=== PATIENT | female | born 1960 | race Caucasian/White ===

== ENCOUNTER 2025-05-17 14:20 | Outpatient (REF) | payer MEDICARE, SELFPAY ==
--- NOTE | ~2025-05-17 | US_ITS ---
EXAMINATION: US THYROID CLINICAL INFORMATION: Multinodular goiter, nontoxic. COMPARISON: None available. TECHNIQUE: Linear transducer grayscale and color Doppler examination with attention to the region of the thyroid. FINDINGS: SIZE: Measurements of the thyroid lobes and nodules are given in sagittal, anteroposterior and transverse dimensions respectively. Right Thyroid Lobe: 4.9 x 1.4 x 1.6 cm, volume 5.5 mL. Parenchyma: The gland echotexture is heterogeneous. Thyroid vascularity is increased. Left Thyroid Lobe: 3.9 x 1.0 x 1.0 cm, volume 2.1 mL. Parenchyma: The gland echotexture is heterogeneous. Thyroid vascularity is normal. Isthmus: 0.2 cm in maximum AP dimension. Estimated total number of nodules greater than or equal to 1 cm: 1. 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 Location: Midportion right lobe. Size: 1.0 x 0.4 x 0.7 cm, volume 0.1 mL. Nodule characteristics: Composition: Solid (2). Echogenicity: Isoechoic (1). Shape: Not taller than wide (0). Margins: Ill-defined (0). Echogenic Foci: None (0). ACR TI-RADS total points: 3 ACR TI-RADS category: 3 NODES: Nonspecific 2 cm ovoid shaped lymph node, labeled III left-sided. US/US thyroid IMPRESSION: ACR TI-RADS category: 3. Midportion right lobe. ACR TI-RADS RECOMMENDATION REFERENCE: Ultrasound-guided fine-needle aspiration, followup ultrasound, no further follow up. * TR1 (0 point) and TR2 (2 points): No FNA or follow up. * TR3 (3 points): FNA if more than or equal to 2.5 cm in maximum dimension, followup ultrasound in 1, 3 and 5 years if 1.5 to 2.4 cm in maximum dimension. * TR4 (4-6 points): FNA if more than or equal to 1.5 cm in maximum dimension, followup ultrasound in 1, 2, 3 and 5 years if 1 to 1.4 cm in maximum dimension. * TR5 (more than or equal to 7 points): FNA if more than or equal to 1 cm in maximum dimension, followup ultrasound every year for 5 years if 0.5 to 0.9 cm in maximum dimension. * TR3, TR4 or TR5 nodules that are below the size threshold for followup receive no follow up. Electronically signed by: Otf Haney MD 05/17/2025 03:17 PM EDT
--- OUTSIDE RECORDS SUMMARY | 2025-05-17 19:44 | XMS_ITS | Encounter Summary ---
Author Organization [facility] Address [address] [place] [address] Phone Care Team Providers Care Registered Respiratory Technician Name Role Phone Ju Earlene Jimenez NP Unavailable [phone] Samantha Stephenson MD Unavailable [phone] Samantha Stephenson MD Primary Care Provider [phone] Samantha Stephenson MD Unavailable [phone] Samantha Stephenson MD Unavailable [phone] Cyrus Yoder DO Primary Care Provider [phone] Samantha Stephenson MD Unavailable [phone] Encounter Details Date Type Department Care Team (Late st Contact Info) Description 09/16/2023 Procedure Pass [facility], [address] [address] Social History Tobacco Use Types Packs/Day Years Used Date Smoking Tobacco: Former Cigarettes 1 32.4 0 09/02/1972 - 01/31/2005 Smokeless Tobacco: Never Comments:From 3878-3208 only rarely smoked Alcohol Use Standard Drinks/Week Comments Yes 6 (1 standard drink = 0.6 oz pur e alcohol) occ Education Answer Date Recorded Are you interested in more education? Not on yamel e 12/28/2022 Are you concerned about learning? Not on file 12/28/2022 No 12/28/2022 No 12/28/2022 Digital Access Answer Date Recorded No 01/28/2023 No 01/28/2023 Reliable internet access at home? Not on file 01/28/2023 Device with a working camera? Not on file Comments No Sex and Gender Information Value Date Recorded Sex Assigned at Female 06/24/2020 5:30 PM EDT Legal Sex Female 9:50 PM EDT Gender Identity Female 06/24/2020 5:30 PM EDT Sexual Orientation Straight 06/24/2020 5: 30 PM EDT documented as of this encounter Plan of Treatment Upcoming Encounters Date Type Department Care Team (Late st Contact Info) Description 04/22/2025 Procedure Pass [address] [address] 07/01/2025 2:15 PM EDT Office Visit [address] [address] Cyrus Yoder DO [address] [place] [address] 07/19/2025 1:00 PM EST Office Visit [facility] [address] [place] [address] Drew Garcia DO [address] [place] [address] 02/25/2026 1:30 PM EDT Appointment [address] [address] Vinnie Frias MD 22 [facility], [address] [place] [address] documented as of this encounter Visit Diagnoses Not on filedocumented in this encounter Care Teams Registered Respiratory Technician Relationship Specialty Start Date End Date Samantha Stephenson MD [address] [place] [address] PCP - General 08/01/17 04/19/24 Cyrus Yoder DO [address] [place] [address] PCP - General Family Medicine 04/20/24 Earlene Dodd NP [address] [place] [address] Historical LMR Provider 06/22/17 Samantha Stephenson MD [address] [place] [address] [email or web address] Historical LMR Provider 06/22/17 Samantha Stephenson MD [address] [place] [address] Insurance Assigned Provider 12/08/22 12/07/23 Samantha Stephenson MD [address] [place] [address] Insurance Assigned Provider 03/07/24 06/07/24 Samantha Stephenson MD [address] [place] [address] Insurance Assigned Provider 07/11/24 08/12/24 documented as of this encounter Additional Source Comments The information contained in this document represents components of the legal health record. It is not the complete legal health record.[facility]
--- OUTSIDE RECORDS SUMMARY | 2025-05-17 19:44 | XMS_ITS | Encounter Summary ---
Author Organization [facility] Address [address] [place] [address] Phone Care Team Providers Care Bods Developer Name Role Phone Earlene Dodd NP Unavailable [phone] Samantha Stephenson MD Unavailable [phone] Cyrus Yoder DO Primary Care Provider [phone] Encounter Details Date Type Department Care Team (Late st Contact Info) Description 05/17/2025 Orders Only [facility] Family Medicine [address] [place] [id number] Provider, MD Kevin [address] [place] [address] Social History Tobacco Use Types Packs/Day Years Used Date Smoking Tobacco: Former Cigarettes 1 32.4 0 09/02/1972 - 01/31/2005 Smokeless Tobacco: Never Comments:From [id number] only rarely smoked Alcohol Use Standard Drinks/Week Comments Yes 6 (1 standard drink = 0.6 oz pur e alcohol) 1-6/week Child or Family Care Answer Date Record ed Do you have problems with on e of the following making it difficult for you to work, study, or receive health care? No 05/29/2024 Education Answer Date Recorded Are you interested in help w ith more adult education (for example, completing high school, GED, job training, learning the [place] language, technical skills, or developing parenting skills)? No 05/29/2024 Are you concerned about learning? Not on file 05/29/2024 No 05/29/2024 Yes 05/29/2024 Food Answer Date Recorded Within the past 6 months we worried whether our food would run out before we got money to buy more. Never True 05/29/2024 Within the past 6 months the food we bought just didn't last and we didn't have enough money to get more. Never True Residential Stability Answer Date Recor ded What is your housing situation today? I have ashkan perez 05/29/2024 How many times have you move d in the past 12 months? Zero (I did not move) 05/29/2024 Paying for Meds Answer Date Recorded Do you have trouble paying for medicines? No 05/29/2024 Paying Utility Bills Answer Date Record ed Do you have trouble paying your heating or elect ricity bill? No 05/29/2024 Transportation Answer Date Recorded Has the lack of transportati on kept you from medical appointments or from getting medications? No 05/29/2024 Digital Access Answer Date Recorded No 05/29/2024 Yes 05/29/2024 Do you have reliable internet access at home? Ye s 05/29/2024 Do you have a device (e.g., phone, tablet, computer) with a working camera? Yes 05/29/2024 Intimate Partner Violence Answer Date R ecorded Are you denied basic needs s uch as food, clothing, or medical care? No 08/17/2024 In the past 12 months have y ou been in a relationship with a person who hurts, threatens, or tries to control you? No 08/17/2024 Are you denied basic needs s uch as food, clothing, or medical care? No 08/17/2024 In the past 12 months have y ou been in a relationship with a person who hurts, threatens, or tries to control you? No 08/17/2024 Comments No Sex and Gender Information Value Date Recorded Sex Assigned at Female 06/24/2020 5:30 PM EDT Legal Sex Female 9:50 PM EDT Gender Identity Female 06/24/2020 5:30 PM EDT Sexual Orientation Straight 06/24/2020 5: 30 PM EDT Occupation Industry Job Start Date Job End Date Retired- [employer] Not on file Not on file Not o n file documented as of this encounter Plan of Treatment Upcoming Encounters Date Type Department Care Team (Late st Contact Info) Description 04/22/2025 Procedure Pass [address] [address] 07/01/2025 2:15 PM EDT Office Visit [address] [address] Cyrus Yoder DO [address] [place] [address] 07/19/2025 1:00 PM EST Office Visit [facility] [address] [place] [address] [place] [address] 02/25/2026 1:30 PM EDT Appointment [address] [address] Vinnie Frias MD [address] [place] [address] documented as of this encounter Procedures Procedure Name Priority Date/Time Associated Diagnosis Comments OUTSIDE US THYROID REPORT ONLY Routine 05/17/2025 4:44 PM EDT documented in this encounter Results * Outside US Thyroid Report Only (05/17/2025 4:44 PM EDT) us Historical Provider MD [place] THYROID Edited Re sult - Final documented in this encounter Visit Diagnoses Not on filedocumented in this encounter Additional Health Concerns Assessment Noted Time PHQ-2 Depression Total Score: 0 06/05/20 24 2:06 PM EDT documented as of this encounter Care Teams Bods Developer Relationship Specialty Start Date End Date Cyrus Yoder DO [address] [place], [place] [address], [place] [address] [email or web address] PCP - General Family Medicine 04/20/24 Earlene Dodd NP [address] [place] [address] [email or web address] Historical LMR Provider 06/22/17 Samantha Stephenson MD [address] [place] [address] [email or web address] Historical LMR Provider 06/22/17 documented as of this encounter Additional Source Comments The information contained in this document represents components of the legal health record. It is not the complete legal health record.[facility]
--- OUTSIDE RECORDS SUMMARY | 2025-05-17 19:44 | XMS_ITS | Encounter Summary ---
Author Organization [facility] Address [address] [place] [address] Phone Care Team Providers Care Strap Folding Machine Operator Name Role Phone Earlene Dodd Barbara GUEVARA Unavailable [phone] Samantha Stephenson MD Unavailable Samantha Stephenson MD Primary Care Provider Samantha Stephenson MD Unavailable [phone] Samantha Stephenson MD Unavailable [phone] Cyrus Yoder DO Primary Care Provider [phone] Samantha Stephenson MD Unavailable [phone] Encounter Details Date Type Department Care Team (Latest Contact Info) Description 07/01/2023 Transcribe Orders Virtual Department [address] [place] [address] Kristie Ng PA [address] [place] [address] [email or web address] Neck pain (Primary Dx); Tenderness Social History Tobacco Use Types Packs/Day Years Used Date Smoking Tobacco: Former Cigarettes S tarted: 2004 Smokeless Tobacco: Never Alcohol Use Standard Drinks/Week Comments Yes 1 (1 standard drink = 0.6 oz pur [...] Contact Info) Description 04/22/2025 Procedure Pass [address] [address] 07/01/2025 2:15 PM EDT Office Visit [address] [address] Cyrus Yoder DO [address] [place] [address] 07/19/2025 1:00 PM EST Office Visit [facility] [address] [place] [address] Drew Garcia DO [address] [place] [address] 02/25/2026 1:30 PM EDT Appointment [address] [address] Vinnie Frias MD [address] [place] [address], [address] [address] documented as of this encounter Results * US Thyroid Gland (07/05/2023 2:49 PM EDT) Anatomical Region Laterality Modality Neck, Head, Chest Ultrasound 07/08/2023 4:24 AM EST Impressions 07/08/2023 4:33 AM EST Homogeneous background thyroid parenchymal echotexture. No thyroid nodule meeting TI-RADS criteria for tissue sampling or follow-up imaging. ACR TI-RADS assessment categories can be found at https://www.acr.org/Clinical-Resources/Ijppgwcud-qpb-Tdos-Systems/TI-RADS Narrative 07/08/2023 4:33 AM EST US THYROID GLAND TECHNIQUE: Ultrasound of the thyroid. COMPARISON: None FINDINGS: Right Thyroid: The right lobe measures 5.2 cm in sagittal dimension. Multiple cysts/spongiform (TR 1) and hypoechoic (TR 4) nodules measuring up to 4 mm. No right sided adenopathy is detected. Left Thyroid: The left lobe measures 3.9 cm in sagittal dimension. No nodule. No left sided adenopathy is detected. Procedure Note Jonn Ramirez MD - 07/08/2023 US THYROID GLAND TECHNIQUE: Ultrasound of the thyroid. COMPARISON: None FINDINGS: Right Thyroid: The right lobe measures 5.2 cm in sagittal dimension. Multiple cysts/spongiform (TR 1) and hypoechoic (TR 4) nodules measuringup to 4 mm. No right sided adenopathy is detected. Left Thyroid: The left lobe measures 3.9 cm in sagittal dimension. No nodule. No left sided adenopathy is detected. IMPRESSION: Homogeneous background thyroid parenchymal echotexture. No thyroid nodule meeting TI-RADS criteria for tissue sampling orfollow-up imaging. ACR TI-RADS assessment categories can be found athttps://www.acr.org/Clinical-Resources/Okhtxlapf-ckt-Ctns-Systems/TI-RADS us Kristie JASON IMG US THYROID Final Result documented in this encounter Visit Diagnoses Diagnosis Neck pain- Primary Cervicalgia Tenderness Neck pain Cervicalgia Tenderness documented in this encounter Care Teams Strap Folding Machine Operator Relationship Specialty Start Date End Date Samantha Stephenson MD [address] [place] [address] PCP - General 08/01/17 04/19/24 Cyrus Yoder DO [address] [place] [address] PCP - General Family Medicine 04/20/24 Earlene Dodd NP [address] [place] [address] [email or web address] Historical LMR Provider 06/22/17 Samantha Stephenson MD [address] [place] [address] [email or web address] Historical LMR Provider 06/22/17 Samantha Stephenson MD [address] [place] [address] Insurance Assigned Provider 12/08/22 12/07/23 Samantha Stephenson MD [address] [place] [address] Insurance Assigned Provider 03/07/24 06/07/24 Samantha Stephenson MD [address] [place] [address] Insurance Assigned Provider 07/11/24 08/12/24 documented as of this encounter Additional Source Comments The information contained in this document represents components of the legal health record. It is not the complete legal health record.[facility]
--- OUTSIDE RECORDS SUMMARY | 2025-05-17 19:44 | XMS_ITS | Encounter Summary ---
Author Organization [facility] Address [address] [place] [address] Phone Care Team Providers Care Inspector Publications Name Role Phone Ju Earlene Jimenez NP Unavailable [phone] Samantha Stephenson MD Unavailable [phone] Samantha Stephenson MD Primary Care Provider [phone] Samantha Stephenson MD Unavailable [phone] Samantha Stephenson MD Unavailable [phone] Cyrus Yoder DO Primary Care Provider [phone] Samantha Stephenson MD Unavailable [phone] Encounter Details Date Type Department Care Team (Late st Contact Info) Description 08/13/2023 Procedure Pass [facility] Admitting Dept Virtual Department [address] [place] [address] Social History Tobacco Use Types Packs/Day Years [...] st Contact Info) Description 04/22/2025 Procedure Pass [address] [address] 07/01/2025 2:15 PM EDT Office Visit [address] [address] Cyrus Yoder DO [address] [place] [address] 07/19/2025 1:00 PM EST Office Visit [facility] [address] [place] [address] Drew Garcia DO [address] [place] [address] 02/25/2026 1:30 PM EDT Appointment [address] [address] Vinnie Frias MD [address] [place] [address], [address] [place] [address] documented as of this encounter Visit Diagnoses Not on filedocumented in this encounter Care Teams Inspector Publications Relationship Specialty Start Date End Date Samantha Stephenson MD [address] [place] [address] PCP - General 08/01/17 04/19/24 Cyrus Yoder DO [address] [facility] [place] [address] [email or web address] PCP - General Family Medicine 04/20/24 Earlene Dodd INSTRUCTOR OF SOCIOLOGY [address] [place] [address] [email or web address] Historical LMR Provider 06/22/17 Samantha Stephenson MD [address] [place] [address] [email or web address] Historical LMR Provider 06/22/17 Samantha Stephenson MD [address] [place] [address] [email or web address] Insurance Assigned Provider 12/08/22 12/07/23 Samantha Stephenson MD [address] [place] [address] [email or web address] Insurance Assigned Provider 03/07/24 06/07/24 Samatnha Stephenson MD [address] [place] [address] [email or web address] Insurance Assigned Provider 07/11/24 08/12/24 documented as of this encounter Additional Source Comments The information contained in this document represents components of the legal health record. It is not the complete legal health record.[facility]
--- OUTSIDE RECORDS SUMMARY | 2025-05-17 19:44 | XMS_ITS | Clinical Summary ---
Author Organization [facility] Address [address] [place] [address] Phone Care Team Providers Care Certified Adapted Physical Educator Name Role Phone Earlene Dodd NP Unavailable [phone] Samantha Stephenson MD Unavailable [phone] Teressa Okeefe DO Primary Care Provider [phone] Allergies Active Allergy Reactions Criticality Noted Date Comments Allergen Qod-Rqkok-Ojkif Bee 024 Epinephrine 09/27/2015 Other reaction(s): heart races Nitrofurantoin Macrocrystal 09/27/19 16 Other reaction(s): hives Penicillin Hives 04/23/2018 Penicillin G Sodium 06/26/2019 Other Reaction(s): Unknown Medications cycloSPORINE (RESTASIS) 0.05 % suspension Place 1 drop into each eye 2 (two) times a day. Active famotidine (PEPCID) 20 MG tablet Take 20 mg by mouth 2 (two) times a day. 4 Active therapeutic multivitamin tablet Take 1 tablet by mouth daily. Active docosahexaenoic acid/epa (FISH OIL ORAL) Take by mouth. Active calcium citrate/vitamin D3 (CITRACAL + D ORAL) Take by mouth. Active EPINEPHrine 0.3 mg/0.3 mL auto-injector Inject 0.3 mL (0.3 mg total) into the muscle as needed for anaphylaxis. 2 each 5 Active estradioL (ESTRACE) 0.01 % (0.1 mg/gram) vaginal creamIndications :Vaginal dryness, menopausal Place 1 g vaginally 3 times a week. 42.5 g 2 5 Active estradioL (ESTRACE) 0.01 % (0.1 mg/gram) vaginal creamIndications :Vaginal dryness, menopausal Place 1 g vaginally 3 times a week. 42.5 g 1 5 04/22/20 25 Discontin ued(Reord er) Active Problems Problem Noted Date Diagnosed Date Dry eye syndrome of both eyes 06/05/2024 Assessment & Plan (06/05/2024 2:33 PM EDT): Developed after lasik surgery. Manages with prn restasis PMB (postmenopausal bleeding) 03/10/2024 Thyroid nodule 03/09/2024 Assessment & Plan (06/05/2024 2:29 PM EDT): Has close f/u with Dr Garcia observation advised to this point with repeat u/s at 6 months and consideration of bx if nodule increases in size. PONV (postoperative nausea and vomiting) 024 GERD (gastroesophageal reflux disease) Assessment & Plan (06/05/2024 2:32 PM EDT): Pt advised to avoid late night meals, spicy foods, foods high in fat, caffeine, tobacco and alcohol. Pt advised to elevate the head of the bed and reduce weight. Pt uses famotidine and follows with GI Dr Winslow. Nontoxic multinodular goiter 02/07/2024 Assessment & Plan (07/17/2024 1:03 PM EST): The patient does have small subcentimeter nodules that were not measured she also has some cystic lesions that were not measured. These will not require biopsy. But because she has family history of thyroid carcinoma. I will repeat ultrasound in 1 year and this time I will refer her to [facility]. Assessment & Plan (02/07/2024 11:00 AM EDT): The patient was said to have spongiform cystic nodules and at least one 4 mm hypoechoic nodule in the right lobe. This nodule is too small to biopsy. One other issues also is that it was not documented on the ultrasound images. I am referring her for repeat ultrasound in approximately 1 year from the last ultrasound and she will see me maybe 2 weeks later. We can review the ultrasound if the nodule is bigger maybe even 7 or 8 mm it could potentially be biopsied but normally we will biopsy a nodule when is at least 1 cm in size. The reason for this is that is difficult to get enough follicular cells on cytology. Osteopenia 11/06/2021 Overview (11/06/2021): 10/2021 - DEXA with osteopenia noted; advised fol up with PCP, adequate Calcium/Vit D and weight bearing exercise and interval screening as advised by PCP. Family history of osteoporosis in sister 020 Overview (11/06/2021): Sister dx with osteoporosis age 56 Mother, mgm osteoporosis age 60s 10/2021 - DEXA with osteopenia noted; advised fol up with PCP, adequate Calcium/Vit D and weight bearing exercise and interval screening as advised by PCP. Assessment & Plan (02/14/2021 5:52 PM EDT): Rosa will pursue DEXA; was to have baseline last year but was deferred due to pandemic. Assessment & Plan (11/03/2019 4:53 PM EST): We reviewed family history of early onset of osteoporosis. Will check baseline DEXA as precaution. Rosa will continue with regular exercise and will evaluate her dietary calcium intake and add supplement prn. Menopausal vaginal dryness 10/31/2018 Assessment & Plan (06/05/2024 2:35 PM EDT): Follows with [facility] and manages with estrace Assessment & Plan (02/14/2021 5:51 PM EDT): Natali will try Estring and may also apply Estrace to introitus 2-3 times a week. We reviewed need for consistent use of vaginal estrogen to achieve optimum effect. She will continue with lube as well. Assessment & Plan (10/31/2018 4:55 PM EST): We reviewed strategies for treating vaginal dryness. Rosa has Estring at home but was reluctant to use having read about risks of systemic estrogen. We discussed difference in risk profile for vaginal vs. Systemic rx. She would like to try Estring and will call for refills if she is happy with it - may refill through 11/2019. Encounters Date Type Department Care Team Description 05/17/2025 Orders Only [facility] [address] [place] [address] Provider, MD Kevin 04/22/2025 11:40 AM EDT Office Visit [facility] [address] [place] [address] Vinnie Frias MD Encounter for gynecological examination without abnormal finding (Primary Dx); Vaginal dryness, menopausal 03/18/2025 Telephone [facility] [address] [place] [address] Teressa Okeefe, DO Same day can 03/17/2025 Nurse Triage [facility] [address] [place] [address] Lachelle Jay Calf Pain 02/24/2025 1:05 PM EDT - 02/24/2025 11:59 PM EDT Hospital Encounter [address] [address] Teressa Okeefe, DO Discharge Disposition: Home or Self Care 09/07/2024 Procedure Pass [facility] [address] [place] [address] from Last 3 Months Immunizations Immunization Administration Dates Next Due COVID-19 (Pre-06/24) Pfizer Vaccine, mRNA, PF ,11/26/2020 Family History Medical History Relation Comments Cancer Father Skin cancer Hyperlipidemia Father Hypertension Father Skin cancer Father Throat cancer Maternal Grandmother CV disease Mother [place] Cancer Mother Cervical cancer Cervical cancer Mother Breast cancer Sister Cancer Sister Thyroid cancer Osteoporosis Sister Thyroid cancer Sister Relation Status Comments Father Alive Maternal Grandmother Mother Alive Sister Social History Tobacco Use Types Packs/Day Years Used Date Smoking Tobacco: Former Cigarettes 1 32.4 0 09/02/1972 - 01/31/2005 Smokeless Tobacco: Never Tobacco Cessation:Counseling Given: Not Answered Comments:From [id number] only rarely smoked Alcohol Use Standard Drinks/Week [...] high school, GED, job training, learning the Polish language, technical skills, or developing parenting skills)? [...] Not on file Not o n file Last Filed Vital Signs Vital Sign Reading Time Taken Comments Blood Pressure 110/72 04/22/2025 11:29 AM EDT Pulse 90 08/17/2024 11:35 AM EST Temperature 36.2 C (97.1 F) 08/17/2024 11:20 AM EST Respiratory Rate 16 08/17/2024 11:35 AM EST Oxygen Saturation 97% 08/17/2024 11:35 AM EST Inhaled Oxygen Concentration - - Weight 68.2 kg (150 lb 6.4 oz) 04/22/2025 11:29 AM EDT Height 160 cm (5' 3 ) 04/22/2025 11:29 AM EDT Body Mass Index 26.64 04/22/2025 11:29 AM EDT Plan of Treatment Upcoming Encounters Date Type Department Care Team (Late st Contact Info) Description 04/22/2025 Procedure Pass [facility], [facility]- [address] [address] 07/01/2025 2:15 PM EDT Office Visit [address] [address] Teressa Okeefe, DO [address] [place] [address] 07/19/2025 1:00 PM EST Office Visit [facility] [address] [place] [address] Drew Garcia DO [address] [place] [address] 02/25/2026 1:30 PM EDT Appointment [facility], [address] [address] Vinnie Frias MD 22 [facility], [address] [place] [address] [email or web address] Health Maintenance Due Date Last Done Comments Adult Td,Tdap Booster 1960 COLOGUARD 2004 FIT TEST 2004 FOBT 2004 SIGMOIDOSCOPY 2004 VIRTUAL COLONOSCOPY 2004 PNEUMOCOCCAL VACCINES (50+ years) (1 of 1 - PCV) 2009 ZOSTER VACCINES (1 of 2) 2009 INFLUENZA VACCINE (#1) 2025 06/24/2018 COVID-19 VACCINE (3 - 2024- season) 2025 12/17/2020, 11/26/2020 DEPRESSION SCREENING 06/05/2025 06/05/2024 MAMMOGRAM 02/24/2027 02/24/2025, 04/0 12/2023, 12/04/2022, Additional history exists SCREENING FOR DIABETES 07/02/2027 07/02/2024 PAP SMEAR 12/29/2028 12/30/2023, 03/0 11/2019, 11/03/2019, Additional history exists LIPID PANEL 07/02/2029 07/02/2024, 02/27/2022 RSV VACCINE (1 - 1-dose 75+ series) 2034 COLONOSCOPY 08/17/2034 08/17/2024 COLORECTAL CANCER SCREENING 08/17/2034 OSTEOPOROSIS SCREENING INITIAL (ONE-TIME) Completed 10/25/2021 HEPATITIS C SCREENING Completed 07/02/2024 HIV ONE-TIME SCREENING (18-65 YEARS) Completed 07/02/2024 SMOKING STATUS SCREENING (Once After 26 Yrs) Completed 04/22/2025 HEPATITIS A VACCINES Aged Out No long er eligible based on patient's age to complete this topic HIB VACCINES Aged Out No longer eligi ble based on patient's age to complete this topic MENINGOCOCCAL VACCINES (ACWY) Aged Out No longer eligible based on patient's age to complete this topic MENINGOCOCCAL VACCINES (B) Aged Out N o longer eligible based on patient's age to complete this topic Medical Devices Implanted Type Area Security Incident Handler Device Identifier Shelf Expiration Date Model / Serial / Lot Prosthetic Joint-Bilateral Hips Prosthetic Joint Hip Procedures Procedure Name Priority Date/Time Associated Diagnosis Comments OUTSIDE US THYROID REPORT ONLY Routine 05/17/2025 4:44 PM EDT BI MAMMOGRAM SCREENING WITH TOMOSYNTHESIS WITH CAD (BILATERAL) Routine 02/24/2025 1:29 PM EDT Visit for screening mammogram ENDOSCOPY, COLON 08/17/2024 10:5 0 AM EST LIPID PANEL Routine 07/02/2024 9:02 AM EDT Screening for condition HEPATITIS C ANTIBODY, QUALITATIVE Routine 07/02/2024 9:02 AM EDT Need for hepatitis C screening test PAP TEST Routine 12/30/2023 12:00 AM EDT BD DXA AXIAL (SPINE) WITH HIP Routine 10/25/2021 3:05 PM EST Vaginal dryness, menopausal from Last 3 Months or Most Recently Relevant to Health Maintenance Results * Outside US Thyroid Report Only (05/17/2025 4:44 PM EDT) us Historical Provider MD MENENDEZ US THYROID Edited Re sult - Final * BI MAMMOGRAM SCREENING WITH TOMOSYNTHESIS WITH CAD (BILATERAL) (02/24/2025 1:29 PM EDT) Anatomical Region Laterality Modality Breast Left, Breast Right, Breast Bilateral Bila teral Mammography 02/25/2025 2:57 PM EDT Impressions 02/25/2025 2:59 PM EDT No mammographic evidence of malignancy in either breast. Annual screening mammography is recommended. BI-RADS 2 BENIGN The patient will be notified of the results and recommendations. Narrative 02/25/2025 2:59 PM EDT BI MAMMOGRAM SCREENING WITH TOMOSYNTHESIS WITH CAD (BILATERAL) Additional patient information: Screening. COMPARISON: Comparison is made with relevant prior imaging. Breast composition: There are scattered areas of fibroglandular density. FINDINGS: Mass in the central right breast appears grossly stable dating back to at least 2018. No abnormal masses, suspicious calcifications, or other significant findings are identified mammographically in either breast. Procedure Note Faviola Yang MD - 02/25/2025 BI MAMMOGRAM SCREENING WITH TOMOSYNTHESIS WITH CAD (BILATERAL) Additional patient information: Screening. COMPARISON: Comparison is made with relevant prior imaging. Breast composition: There are scattered areas of fibroglandular density. FINDINGS: Mass in the central right breast appears grossly stable dating back to atleast 2018. No abnormal masses, suspicious calcifications, or other significantfindings are identified mammographically in either breast. IMPRESSION: No mammographic evidence of malignancy in either breast. Annual screening mammography is recommended. BI-RADS 2 BENIGN The patient will be notified of the results and recommendations. Teressa Okeefe DO IMG MG EXAMS Final Result * ENDOSCOPY, COLON (08/17/2024 10:50 AM EST) Narrative Transcriptions Armando Winslow MD - 08/17/2024 10:50 AM EST [facility] Patient Name: Rosa Diop Attending MD:: ARMANDO WINSLOW MD, Procedure Date: 08/17/2024 10:50AM Date of : 1960 Age: 64 Admit Type: Outpatient Gender: Female Room: [facility] Referring MD: TERESSA OKEEFE MD Exam Type: Colonoscopy Indications: Surveillance: Personal history of adenomatouspolyps on last colonoscopy > 5 years ago, Lastcolonoscopy: August 2019 Medications: Monitored Anesthesia Care Procedure: Informed consent was obtained from the patientafter discussion of the indications, limitations, alternatives, benefits, and risks of the procedure. Risks specifically discussed include but are not limited to medication reactions, missed lesions, bleeding, perforation, or the need for emergent surgery. Throughout the procedure, the patient's blood pressure, pulse, end-tidal CO2, and oxygensaturations were monitored continuously. The Colonoscope was introduced through the anus and advanced to the cecum, identified by theappendiceal orifice, ileocecal valve and palpation. The colonoscopy was somewhat difficult due tosignificant looping. Successful completion of the procedure was aided by applying abdominal pressure. The patient tolerated the procedure poorly due to the patient's cardiovascular instability (arrhythmia). Thequality of the bowel preparation was evaluated using theBBPS (Garland Bowel Preparation Scale) with scores of:Right Colon = 2 (minor amount of residual staining, small fragments of stool and/or opaque liquid, but mucosa seen well), Transverse Colon = 3 (entire mucosaseen well with no residual staining, small fragments of stool or opaque liquid) and Left Colon = 2 (minor amount of residual staining, small fragments ofstool and/or opaque liquid, but mucosa seen well). Thetotal BBPS score equals 7. The ileocecal valve,appendiceal orifice, and rectum were photographed. Complications: Asystole pause requiring thump pacing before spontaneous return of rhythm. Findings: The perianal and digital rectal examinations were normal. Pertinent negatives include normalsphincter tone. The colon (entire examined portion) was moderately redundant. Retroflexion in the right colon was performed. A few small-mouthed diverticula were found in the descending colon. The exam was otherwise without abnormality ondirect and retroflexion views. Impression: - Redundant colon. - Diverticulosis in the descending colon. - The examination was otherwise normal on directand retroflexion views. - No specimens collected. Recommendation: - Repeat colonoscopy in 5-7 years for surveillance(at hospital site only). ARMANDO WINSLOW MD 08/17/2024 11:18:03 AM This report has been signed electronically. Number of Addenda: 0 Note Initiated On: 08/17/2024 10:50 AM Procedure Code(s): --- Professional --- 96752, Colonoscopy, flexible; diagnostic, including collection of specimen(s) by brushing or washing, when performed (separateprocedure) --- Technical --- 53489, Colonoscopy, flexible; diagnostic, including collection of specimen(s) by brushing or washing, when performed (separateprocedure) Diagnosis Code(s): --- Professional --- Z86.010, Personal history of colonic polyps K57.30, Diverticulosis of large intestine without perforation or abscess without bleeding Q43.8, Other specified congenital malformations of intestine --- Technical --- Z86.010, Personal history of colonic polyps K57.30, Diverticulosis of large intestine without perforation or abscess without bleeding Q43.8, Other specified congenital malformations of intestine CPT copyright 2021 [employer]. All rights reserved. The codes documented in this report are preliminary and upon steel welder reviewmay be revised to meet current compliance requirements. Procedure Date: 08/17/2024 10:50:45 AM [address] [place] [address] us Teressa Okeefe DO GI PROCEDURE ORDERABLES Final Re sult * Hepatitis C antibody, qualitative (07/02/2024 9:02 AM EDT) HCV NON-REACTIV E NON-REACTI VE [facility] Blood 07/02/2024 9:02 AM EDT 07/02/2024 9:05 AM EDT Teressa Okeefe LAB BLOOD ORDERABLES Final Resul t Performing Organization Address [facility] Co de Phone Number [address] [address] * (ABNORMAL) Lipid panel (07/02/2024 9:02 AM EDT) HDL 66 mg/dL [facility] Comment: Interpretation <40 mg/dL: Low HDL cholesterol (major risk factor for CHD) Greater than or equal to 60 mg/dL: High HDL cholesterol ( negative risk factor for CHD) HDL - cholesterol is affected by a number of factors, e.g. smoking, excerise, hormones, sex and age. CHOLESTEROL 175 0 - 240 mg/dL [facility] TRIGLYCERIDES 57 30 - 160 mg/dL [facility] LDL 98 50 - 129 mg/dL [facility] Comment: LDL levels in terms of risk for coronary heart disease: <100 mg/dL: Optimal 100-129 mg/dL: Near or above optimal 130-159 mg/dL: Borderline high 160-189 mg/dL: High >190 mg/dL: Very High CARDIAC RISK RATIO 2.7(L) 3.3 - 4.4 C [facility] Blood 07/02/2024 9:02 AM EDT 07/02/2024 9:05 AM EDT Teressa Okeefe [employer] LAB BLOOD ORDERABLES Final Resul t Performing Organization Address City/[facility]/ZIP Co de Phone Number [address] [address] * Pap Test (12/30/2023 12:00 AM EDT) 12/30/2023 12/31/2023 10: 00 AM EDT Narrative SEE NARRATIVE - 01/07/2024 2:46 PM EDT [address] [address] Change Management Coordinator: Amirah Duran MD [facility] Cytology Report FINAL DIAGNOSIS A. PAP SMEAR (SUREPATH) CE: SPECIMEN ADEQUACY: Satisfactory for evaluation; transformation zone present. INTERPRETATION: NEGATIVE FOR INTRAEPITHELIAL LESION OR MALIGNANCY. Electronically Signed Out By: Amirah Duran MD By his/her signature above, the pathologist listed as making the Final Diagnosis certifies that he/she has personally reviewed this case and confirmed or corrected the diagnosis. The Pap test is a screening test primarily for squamous cancers and precursors and has associated false-negative and false-positive results. New technologies such as liquid-based preparations may decrease but will not eliminate all false-negative results. Regular sampling and follow-up of unexplained clinical signs and symptoms are recommended to minimize false negative results. CLINICAL HISTORY Date of Last Menstrual Period: Not Provided Menstrual History: Post Menopausal Bleeding, PM Other Clinical Conditions: Screening Pap SPECIMEN SOURCE A: PAP SMEAR (SUREPATH) CE Patient Name: ROSA DIOP : 1960 (Age: 63) Sex: F Institution: [facility] Location: [facility] Date of Collection: 12/30/2023 Date of Reported: 01/07/2024 14:46 Results to: Alphonso Gomez MD, BS us Alphonso Gomez MD CYTOLOGY ORDERABLES Final Res ult SEE NARRATIVE * BD DXA AXIAL (SPINE) WITH HIP (10/25/2021 3:05 PM EST) Anatomical Region Laterality Modality Bone Density Bone Density 10/25/2021 3:23 PM EST Impressions 10/25/2021 3:27 PM EST Interval left hip osteopenia. Normal lumbar spine bone density. Decrease in bone density at both sites since 2006. Narrative 10/25/2021 3:27 PM EST COMPARISON: 07/22/2007 report. Images are not available. BONE DENSITY FINDINGS: History: This is a 61-year-old postmenopausal female. Evaluation of the lumbar spine and left hip was performed and felt to be technically adequate. L1-L4 vertebral bodies total bone mineral density was calculated at 0.989 gm/cm2 with a T-score of -0.5 falling within the WHO classification of normal-unchanged. Z-score of 1. 13.5% decrease in bone density which is statistically significant. Left femoral neck bone mineral density was calculated at 0.646 gm/cm2 with a T- score of -1.8 falling within the WHO classification of osteopenia. Z-score of -0.4. Total Left hip bone mineral density was calculated at 0.796 gm/cm2 with a T- score of -1.2 falling within the WHO classification of osteopenia-previously normal. Z-score of -0.1. 9.9% decrease in bone density which is statistically significant. Procedure Note Jas Fortune MD - 10/25/2021 COMPARISON: 07/22/2007 report. Images are not available. BONE DENSITY FINDINGS: History: This is a 61-year-old postmenopausal female. Evaluation of the lumbar spine and left hip was performed and felt to betechnically adequate. L1-L4 vertebral bodies total bone mineral density was calculated at 0.989gm/cm2 with a T-score of -0.5 falling within the WHO classification ofnormal-unchanged. Z- score of 1. 13.5% decrease in bone density which isstatistically significant. Left femoral neck bone mineral density was calculated at 0.646 gm/cm2 witha T- score of -1.8 falling within the WHO classification of osteopenia.Z-score of -0.4. Total Left hip bone mineral density was calculated at 0.796 gm/cm2 with aT-score of -1.2 falling within the WHO classification ofosteopenia-previously normal. Z- score of -0.1. 9.9% decrease in bonedensity which is statistically significant. IMPRESSION: Interval left hip osteopenia. Normal lumbar spine bone density. Decreasein bone density at both sites since 2006. us Earlene MENENDEZ BD BONE DENSITY DEXA Final Result from Last 3 Months or Most Recently Relevant to Health Maintenance Insurance [employer] MEDEX SUPPLEMENT MEDICARE PART A & B [employer] MEDEX SUPPLEMENT MEDICARE PART A & B [employer] MEDEX SUPPLEMENT MEDICARE PART A & B [employer] MEDEX SUPPLEMENT MEDICARE PART A & B [employer] MEDEX SUPPLEMENT MEDICARE PART A & B Member Subscriber Plan / Payer ( fective 2024-Present) Name:ZahraaCatherine cordonnne Member ID:[id number] Relation to Subscriber:Self Name:Catherine Diopnne Subscriber ID:[id number] Payer ID:[id number] Group ID:Not on file Type:Medicare Address: [employer] [address] [employer] MEDEX SUPPLEMENT MEDICARE PART A & B Advance Directives For more information, please contact: [phone] (9AM - 5PM [facility], Saturday-Saturday) * Full Code (Latest Code Status on File) Date Activated Date Inactivated Comments 03/10/2024 11:03 AM Question Answer Comments Code Status Confirmed With: Patient Care Teams Certified Adapted Physical Educator Relationship Specialty Start Date End Date Teressa Okeefe DO [address] [place] [address] [place] [address] PCP - General Family Medicine 04/20/24 Earlene Dodd NP [address] [place] [id number] [email or web address] Historical LMR Provider 06/22/17 Samantha Stephenson MD [address] [place] [id number] [email or web address] Historical LMR Provider 06/22/17 Additional Source Comments The information contained in this document represents components of the legal health record. It is not the complete legal health record.[facility]
--- OUTSIDE RECORDS SUMMARY | 2025-05-17 19:44 | XMS_ITS | Encounter Summary ---
Author Organization [facility] Address [address] [place] [address] Phone Care Team Providers Care Powerhouse Helper Name Role Phone Earlene Dodd NP Unavailable [phone] Samantha Stephenson MD Unavailable [phone] Cyrus Yoder DO Primary Care Provider [phone] Encounter Details Date Type Department Care Team (Late st Contact Info) Description 09/07/2024 Procedure Pass [facility], [address] [address] Social History Tobacco Use Types Packs/Day Years Used Date Smoking Tobacco: Former Cigarettes 1 32.4 0 09/02/1972 - 01/31/2005 Smokeless Tobacco: Never Comments:From 4766-4910 only rarely smoked Alcohol Use Standard Drinks/Week [...] high school, GED, job training, learning the Cuban language, technical skills, or developing parenting skills)? [...] your housing situation today? I have ashkan sing 05/29/2024 How many times have you move [...] Job Start Date Job End Date Retired- [employer] Not on file Not on file Not o n file documented as of this encounter Plan of Treatment Upcoming Encounters Date Type Department Care Team (Late st Contact Info) Description 04/22/2025 Procedure Pass [address] [address] 07/01/2025 2:15 PM EDT Office Visit [address] [address] Cyrus Yoder DO 29 [place] [address] 07/19/2025 1:00 PM EST Office Visit [facility] [address] [place] [address] Drew Garcia DO 22 [place] [address] 02/25/2026 1:30 PM EDT Appointment [address] [address] Vinnie Frias MD [address] [place] [address], [address] [address] documented as of this encounter Visit Diagnoses Not on filedocumented in this encounter Additional Health Concerns Assessment Noted Time PHQ-2 Depression Total Score: 0 06/05/20 24 2:06 PM EDT documented as of this encounter Care Teams Powerhouse Helper Relationship Specialty Start Date End Date Cyrus Yoder DO [address] [place] [address] PCP - General Family Medicine 04/20/24 Earlene Dodd NP [address] [place] [address] Historical LMR Provider 06/22/17 Samantha Stephenson MD [address] [place] [id number] [email or web address] Historical LMR Provider 06/22/17 documented as of this encounter Additional Source Comments The information contained in this document represents components of the legal health record. It is not the complete legal health record.[facility]
--- OUTSIDE RECORDS SUMMARY | 2025-05-17 19:44 | XMS_ITS | Encounter Summary ---
Author Organization [facility] Address [address] [place] [address] Phone Care Team Providers Care Spring Intern Name Role Phone Earlene Dodd Barbara GUEVARA Unavailable [phone] Samantha Stephenson MD Unavailable Kurt Sifuentes DO Unavailable Christel Grayson MD Unavailable Caitie Devlin MD Unavailable [phone] Katie Rangel MD Unavailable Navi Robles MD Unavailable Samantha Stephenson MD Primary Care Provider [phone] Samantha Stephenson MD Unavailable [phone] Samantha Stephenson MD Unavailable [phone] Samantha Stephenson MD Unavailable [phone] Cyrus Yoder DO Primary Care Provider Samantha Stephenson MD Unavailable [phone] Encounter Details Date Type Department Care Team (Latest Contact Info) Description 04/07/2018 Transcribe Orders [facility] Laboratory [address] [place] [address] Kristie Ng PA [address] [place] [id number] [email or web address] Osteoarthritis, unspecified osteoarthritis type, unspecified site (Primary Dx); Pre-op evaluation; Muscle cramping; Diagnosis unknown Social History Tobacco Use Types Packs/Day Years Used Date Smoking Tobacco: Never Assessed Comments Unknown Sex and Gender Information Value Date Recorded Sex Assigned at Female 06/24/2020 5:30 PM EDT Legal Sex Female 9:50 PM EDT Gender Identity Female 06/24/2020 5:30 PM EDT Sexual Orientation Straight 06/24/2020 5: 30 PM EDT documented as of this encounter Plan of Treatment Upcoming Encounters Date Type Department Care Team (Late st Contact Info) Description 04/22/2025 Procedure Pass [address] [address] 07/01/2025 2:15 PM EDT Office Visit [address] [address] Cyrus Yoder DO [address] [place] [address] 07/19/2025 1:00 PM EST Office Visit [facility] [address] [place] [address] Drew Garcia DO [address] [place] [address] 02/25/2026 1:30 PM EDT Appointment [address] [address] Vinnie Frias MD [address] [place] [address], [address] [address] documented as of this encounter Results * Vitamin B12 (04/07/2018 3:08 PM EDT) VITAMIN B12 492 867 - 1,245 pg/mL [facility] Blood 04/07/2018 3:08 PM EDT 04/07/2018 3:10 PM EDT Kristie JASON LAB BLOOD ORDERABLES Final Resu lt Performing Organization Address [facility] Co de Phone Number [address] [address] * (ABNORMAL) Urinalysis (04/07/2018 3:08 PM EDT) COLOR Yellow Yellow [facility] CLARITY Clear [facility] GLUCOSE Negative Negative [facility] BILI Negative Negative [facility] KETONES Negative Negative [facility] SPECIFIC GRAVITY 1.010 1.005 - 1.030 [facility] BLOOD Trace(A) Negative [facility] PH 6.0 5.0 - 8.0 [facility] Protein-UA Negative Negative [facility] NITRITE Negative Negative [facility] Leukocyte esterase, ur Negative Negative [facility] Urine (Urine) 04/07/2018 3:0 8 PM EDT 04/07/2018 3:11 PM EDT Kristie JASON URINE ORDERABLES Final Result Performing Organization Address [facility] de Phone Number [address] [address] * Magnesium (04/07/2018 3:08 PM EDT) MAGNESIUM 2.2 1.6 - 2.6 mg/dL [facility] Blood 04/07/2018 3:08 PM EDT 04/07/2018 3:10 PM EDT Kristie JASON LAB BLOOD ORDERABLES Final Resu lt Performing Organization Address [facility] [place] [facility] Co de Phone Number [address] [address] * (ABNORMAL) Folate (04/07/2018 3:08 PM EDT) FOLIC ACID >20.0(H) 4.2 - 19.9 ng/mL [facility] Blood 04/07/2018 3:08 PM EDT 04/07/2018 3:10 PM EDT us Kristie JASON LAB BLOOD ORDERABLES Final Resu lt [address] [address] * (ABNORMAL) CBC and differential (04/07/2018 3:08 PM EDT) WBC 7.24 3.40 - 11.20 K/uL [facility] RBC 4.66 3.80 - 4.80 M/uL [facility] HGB 13.9 12.0 - 15.0 g/dL [facility] HCT 41.7 36.0 - 46.0 % [facility] PLT 280 130 - 400 K/uL [facility] MCV 89.5 79.0 - 98.0 fL [facility] MCH 29.8 27.0 - 34.8 pg [facility] MCHC 33.3 31.5 - 36.0 g/dL [facility] RDW 12.6 10.8 - 14.6 % [facility] MPV 10.0 9.4 - 12.4 fl [facility] NRBC 0.00 /100 WBCs [facility] ABSOLUTE NRBC 0.00 K/uL [facility] DIFF METHOD Auto [facility] NEUTS 56.6 45.30 - 77.70 % [facility] LYMPHS 29.3 12.30 - 39.70 % [facility] MONOS 10.5 4.10 - 12.80 % [facility] EOS 2.3 0 - 7.2 % [facility] BASOS 1.0 0 - 2.80 % [facility] Granulocytes, immature (%) 0.3 0.0 - 0.9 % [facility] ABSOLUTE NEUTS 4.10 1.40 - 7.70 K/uL [facility] ABSOLUTE LYMPHS 2.12 0.60 - 3.20 K/uL [facility] ABSOLUTE MONOS 0.76(H) 0.11 - 0.59 K/uL [facility] ABSOLUTE EOS 0.17 0.01 - 0.50 K/uL [facility] ABSOLUTE BASOS 0.07 0.00 - 0.08 K/uL [facility] Granulocytes, immature 0.02 0.00 - 0.05 K/uL [facility] Blood 04/07/2018 3:08 PM EDT 04/07/2018 3:10 PM EDT us Kristie JASON LAB BLOOD ORDERABLES Final Resu lt Performing Organization Address City/[facility]/ZIP Co de Phone Number [address] [address] * Basic metabolic panel (04/07/2018 3:08 PM EDT) SODIUM 143 133 - 146 mmol/L [facility] CHLORIDE 104 96 - 108 mmol/L [facility] POTASSIUM 4.1 3.3 - 5.1 mmol/L [facility] CO2 27 21 - 35 mmol/L [facility] BUN 15 6 - 19 mg/dL [facility] CREATININE 0.70 0.5 - 1.5 mg/dL [facility] GLUCOSE 85 70 - 99 mg/dL [facility] CALCIUM 9.1 8.4 - 10.3 mg/dL [facility] EGFR 96 >59 mL/min/1.7 3m2 [facility] Comment:If patient is black, multiply result by 1.159. Estimated glomerular filtration rate calculated using the CKD-EPI equation. ANION GAP 16 10 - 20 mmol/L [facility] Blood 04/07/2018 3:08 PM EDT 04/07/2018 3:10 PM EDT Kristie JASON LAB BLOOD ORDERABLES Final Resu lt [address] [address] documented in this encounter Visit Diagnoses Diagnosis Osteoarthritis, unspecified osteoarthritis type, unspecified site- Primary Pre-op evaluation Muscle cramping Diagnosis unknown documented in this encounter Care Teams Spring Intern Relationship Specialty Start Date End Date Samantha Stephenson MD [address] [place] [address] [email or web address] PCP - General 08/01/17 04/19/24 Cyrus Yoder DO [address] [place] [address] [place] [address] PCP - General Family Medicine 04/20/24 Earlene Dodd NP [address] [place] [address] Historical LMR Provider 06/22/17 Samantha Stephenson MD [address] [place] [address] Historical LMR Provider 06/22/17 Kurt Sifuentes DO [address] [place] [address] Orthopedics & Sports Medicine, [place] [address] Historical LMR Provider 06/22/17 09/09/21 Christel Grayson MD [address] [place] [address] Historical LMR Provider 06/22/17 Caitie Devlin MD [address] [place] [address] Historical LMR Provider 06/22/17 2 Katie Rangel MD [address] [place] [phone] Historical LMR Provider 06/22/17 2 Navi Robles MD [address] [place] [address] Historical LMR Provider 06/22/17 2 Samantha Stephenson MD [address] [place] [address] [email or web address] Insurance Assigned Provider 01/03/19 02/06/20 Samantha Stephenson MD [address] [place] [address] Insurance Assigned Provider 12/08/22 12/07/23 Samantha Stephenson MD [address] [place] [address] Insurance Assigned Provider 03/07/24 06/07/24 Samantha Stephenson MD [address] [place] [address] Insurance Assigned Provider 07/11/24 08/12/24 documented as of this encounter Additional Source Comments The information contained in this document represents components of the legal health record. It is not the complete legal health record.[facility]
--- OUTSIDE RECORDS SUMMARY | 2025-05-17 19:44 | XMS_ITS | Encounter Summary ---
Author Organization [facility] Address [address] [place] [address] Phone Care Team Providers Care Sports Fitness And Wellness Director Name Role Phone Earlene Dodd NP Unavailable [phone] Samantha Stephenson MD Unavailable [phone] Cyrus Yoder DO Primary Care Provider [phone] Encounter Details Date Type Department Care Team (Late st Contact Info) Description 08/17/2024 Procedure Pass [facility] Admitting Dept Virtual Department [address] [place], [place] [phone] Social History Tobacco Use Types Packs/Day Years Used Date Smoking Tobacco: Former Cigarettes 1 32.4 0 09/02/1972 - 01/31/2005 Smokeless Tobacco: Never Comments:From 4998-4337 only rarely smoked Alcohol Use Standard Drinks/Week Comments Not Currently 0 (1 standard drink = 0.6 oz pur [...] high school, GED, job training, learning the Serbian language, technical skills, or developing parenting skills)? [...] Job Start Date Job End Date Retired- [employer] Not on file Not on file Not o n file documented as of this encounter Plan of Treatment Upcoming Encounters Date Type Department Care Team (Late st Contact Info) Description 04/22/2025 Procedure Pass [address] [address] 07/01/2025 2:15 PM EDT Office Visit [address] [address] Cyrus Yoder DO 29 [place] [address] 07/19/2025 1:00 PM EST Office Visit [facility] [address] [place] [address] Drew Garcia DO 22 [place] [address] 02/25/2026 1:30 PM EDT Appointment [address] [address] Vinnie Frias MD [address] [place] [address], [address] [address] documented as of this encounter Visit Diagnoses Not on filedocumented in this encounter Additional Health Concerns Assessment Noted Time PHQ-2 Depression Total Score: 0 06/05/20 24 2:06 PM EDT documented as of this encounter Care Teams Sports Fitness And Wellness Director Relationship Specialty Start Date End Date Cyrus Yoder DO [address] [place] [address] PCP - General Family Medicine 04/20/24 Earlene Dodd NP [address] [place] [address] Historical LMR Provider 06/22/17 Samantha Stephenson MD [address] [place] [address] [email or web address] Historical LMR Provider 06/22/17 documented as of this encounter Additional Source Comments The information contained in this document represents components of the legal health record. It is not the complete legal health record.[facility]
--- OUTSIDE RECORDS SUMMARY | 2025-05-17 19:44 | XMS_ITS | Encounter Summary ---
Author Organization [facility] Address [address] [place] [address] Phone Care Team Providers Care Banking Specialist Name Role Phone Earlene Dodd FAST FOOD ASSISTANT RESTAURANT MANAGER Unavailable [phone] Samantha Stephenson MD Unavailable Kurt Sifuentes DO Unavailable Christel Grayson MD Unavailable Caitie Devlin MD Unavailable [phone] Katie Rangel MD Unavailable Navi Robles MD Unavailable Samantha Stephenson MD Primary Care Provider [phone] Samantha Stephenson MD Unavailable [phone] Samantha Stephenson MD Unavailable [phone] Cyrus Yoder DO Primary Care Provider Samantha Stephenson MD Unavailable Encounter Details Date Type Department Care Team (Late st Contact Info) Description 10/18/2020 Ancillary Orders [facility] [address] [place] [address] [place] [address] Earlene Dodd, FAST FOOD ASSISTANT RESTAURANT MANAGER [address] [place] [address] Abnormal mammogram Social History Tobacco Use Types Packs/Day Years Used Date Smoking Tobacco: Former Cigarettes S tarted: 2004 Smokeless Tobacco: Never Alcohol Use Standard Drinks/Week Comments Yes 0 (1 standard drink = 0.6 oz pur e alcohol) occ Comments No Sex and Gender Information Value Date Recorded Sex Assigned at Female 06/24/2020 5:30 PM EDT Legal Sex Female 9:50 PM EDT Gender Identity Female 06/24/2020 5:30 PM EDT Sexual Orientation Straight 06/24/2020 5: 30 PM EDT documented as of this encounter Plan of Treatment Upcoming Encounters Date Type Department Care Team (Late st Contact Info) Description 04/22/2025 Procedure Pass [address] [address] 07/01/2025 2:15 PM EDT Office Visit [address] [address] Cyrus Yoder DO [address] [place] [address] 07/19/2025 1:00 PM EST Office Visit [facility] [address] [place] [address] Drew Garcia DO 22 [place] [address] 02/25/2026 1:30 PM EDT Appointment [address] [address] Vinnie Frias MD 22 [facility], [address] [address] documented as of this encounter Results * BI US BREAST LIMITED (LEFT) (11/01/2020 2:00 PM EST) Anatomical Region Laterality Modality Breast Left, Breast Bilateral Left Ul trasound 11/01/2020 1:46 PM EST Narrative 11/01/2020 1:47 PM EST Refer to the mammogram report. Procedure Note Jas Fortune MD - 11/01/2020 Refer to the mammogram report. us Earlene Barbara Dodd FAST FOOD ASSISTANT RESTAURANT MANAGER IMG US BREAST Final Result * BI MAMMOGRAM DIAGNOSTIC WITH TOMOSYNTHESIS WITH CAD (LEFT) (11/01/2020 1:06 PM EST) Anatomical Region Laterality Modality Breast Left Left Mammography 11/01/2020 12:5 9 PM EST Impressions 11/01/2020 1:50 PM EST No evidence of malignancy. Subcentimeter simple appearing left breast cysts at 3:00 likely accounting for the mammographic finding. Recommend return to routine annual surveillance. Findings relayed to the patient via the technologist. BI-RADS CATEGORY: 2 - Benign finding. DENSITY: There are scattered fibroglandular densities. LEFT RECOMMENDATION DUE DATE: 12 Months Left Mammography Screening Narrative 11/01/2020 1:50 PM EST 60-year-old female who presents for a call back mammogram for left breast asymmetry. Comparison made to previous mammograms. Interpretation made in conjunction with computer-aided detection and tomosynthesis. Left MLO and CC compression views. The left breast is composed of scattered areas of fibroglandular density. There is a persistent small nodular density with central lucencies. No discrete mass margins. Left breast ultrasound was obtained. At 3:00 4 cm from the nipple are 2 simple appearing cysts with the largest measuring up to 4 mm. Procedure Note Jas Fortune MD - 11/01/2020 60-year-old female who presents for a call back mammogram for left breastasymmetry. Comparison made to previous mammograms. Interpretation madein conjunction with computer-aided detection and tomosynthesis. Left MLO and CC compression views. The left breast is composed ofscattered areas of fibroglandular density. There is a persistent smallnodular density with central lucencies. No discrete mass margins. Left breast ultrasound was obtained. At 3:00 4 cm from the nipple are 2simple appearing cysts with the largest measuring up to 4 mm. IMPRESSION: No evidence of malignancy. Subcentimeter simple appearing left breastcysts at 3:00 likely accounting for the mammographic finding. Recommendreturn to routine annual surveillance. Findings relayed to the patient viathe technologist. BI-RADS CATEGORY: 2 - Benign finding. DENSITY: There are scattered fibroglandular densities. LEFT RECOMMENDATION DUE DATE: 12 Months Left Mammography Screening Earlene Dodd FAST FOOD ASSISTANT RESTAURANT MANAGER IMG MG EXAMS Final Result documented in this encounter Visit Diagnoses Diagnosis Abnormal mammogram Abnormal mammogram, unspecified Abnormal mammogram Abnormal mammogram, unspecified Abnormal mammogram Abnormal mammogram, unspecified documented in this encounter Care Teams Banking Specialist Relationship Specialty Start Date End Date Samantha Stephenson MD [address] [place] [address] PCP - General 08/01/17 04/19/24 Cyrus Yoder DO [address] [place] [address] [place] [address] PCP - General Family Medicine 04/20/24 Earlene Dodd NP [address] [place] [address] Historical LMR Provider 06/22/17 Samantha Stephenson MD [address] [place] [address] Historical LMR Provider 06/22/17 Kurt Sifuentes DO [address] [place] [address] Orthopedics & Sports Medicine, [place] [address] [email or web address] Historical LMR Provider 06/22/17 09/09/21 Christel Grayson MD [address] [place] [address] [email or web address] Historical LMR Provider 06/22/17 Caitie Devlin MD [address] [place] [address] Historical LMR Provider 06/22/17 2 Katie Rangel MD [address] [place] [phone] Historical LMR Provider 06/22/17 2 Navi Robles MD [address] [place] [address] Historical LMR Provider 06/22/17 2 Samantha Stephenson MD [address] [place] [address] [email or web address] Insurance Assigned Provider 12/08/22 12/07/23 Samantha Stephenson MD [address] [place] [address] [email or web address] Insurance Assigned Provider 03/07/24 06/07/24 Samantha Stephenson MD [address] [place] [address] [email or web address] Insurance Assigned Provider 07/11/24 08/12/24 documented as of this encounter Additional Source Comments The information contained in this document represents components of the legal health record. It is not the complete legal health record.[facility]
--- OUTSIDE RECORDS SUMMARY | 2025-05-17 19:44 | XMS_ITS | Encounter Summary ---
Author Organization [facility] Address [address] [place] [address] Phone Care Team Providers Care Engine Lathe Operator Name Role Phone Earlene Dodd Barbara GUEVARA Unavailable [phone] Samantha Stephenson MD Unavailable Kurt Sifuentes DO Unavailable Christel Grayson MD Unavailable Caitie Devlin MD Unavailable [phone] Katie Rangel MD Unavailable Navi Robles MD Unavailable Samantha Stephenson MD Primary Care Provider [phone] Samantha Stephenson MD Unavailable [phone] Samantha Stephenson MD Unavailable [phone] Cyrus Yoder DO Primary Care Provider Samantha Stephenson MD Unavailable Encounter Details Date Type Department Care Team (Late st Contact Info) Description 10/18/2020 Procedure Pass [facility] - [address] [place] [address] Social History Tobacco Use Types Packs/Day Years [...] st Contact Info) Description 04/22/2025 Procedure Pass [address] [address] 07/01/2025 2:15 PM EDT Office Visit [address] [address] Cyrus Yoder DO [address] [place] [address] 07/19/2025 1:00 PM EST Office Visit [facility] [address] [place] [address] Drew Garcia DO [address] [place] [address] 02/25/2026 1:30 PM EDT Appointment [address] [address] Vinnie Frias MD 22 [facility], [address] [place] [address] documented as of this encounter Visit Diagnoses Not on filedocumented in this encounter Care Teams Engine Lathe Operator Relationship Specialty Start Date End Date Samantha Stephenson MD [address] [place] [address] PCP - General 08/01/17 04/19/24 Cyrus Yoder DO 29 [facility] [place] [address] PCP - General Family Medicine 04/20/24 Earlene Dodd, MRP CONTROLLER 30 [place] [address] [email or web address] Historical LMR Provider 06/22/17 Samantha Stephenson MD 15 [place] [address] [email or web address] Historical LMR Provider 06/22/17 Kurt Sifuentes DO [address] [place] [address] [facility], [place] [address] [email or web address] Historical LMR Provider 06/22/17 09/09/21 Christel Grayson MD [address] [address] [email or web address] Historical LMR Provider 06/22/17 Caitie Devlin MD [address], [place] [address] Historical LMR Provider 06/22/17 2 Katie Rangel MD 61 [place] [address] Historical LMR Provider 06/22/17 2 Navi Robles MD [address] [place] [address] Historical LMR Provider 06/22/17 2 Samantha Stephenson MD [address] [place] [address] [email or web address] Insurance Assigned Provider 12/08/22 12/07/23 Samantha Stephenson MD [address] [place] [address] Insurance Assigned Provider 03/07/24 06/07/24 Samantha Stephenson MD [address] [place] [address] [email or web address] Insurance Assigned Provider 07/11/24 08/12/24 documented as of this encounter Additional Source Comments The information contained in this document represents components of the legal health record. It is not the complete legal health record.[facility]
--- OUTSIDE RECORDS SUMMARY | 2025-05-17 19:44 | XMS_ITS | Clinical Summary ---
Author Organization [employer] Address 75 [facility] 7t [place] [address] Care Team Providers Care Clinical Education Consultant Name Role Phone Unavailable Primary Care Provider Unavailabl e Social History Tobacco Use Types Packs/Day Years Used Date Smoking Tobacco: Never Assessed Comments Unknown Sex and Gender Information Value Date Recorded Sex Assigned at Female 05/01/2024 10:53 AM EDT Legal Sex Female 2:41 PM EDT Gender Identity Female 05/01/2024 10:53 AM EDT Sexual Orientation Straight 05/01/2024 10 :53 AM EDT Plan of Treatment Health Maintenance Due Date Last Done Comments CT Colonography 1959 Colonoscopy 1959 Colorectal Cancer Screening 1959 Depression Screening 1959 FIT DNA/Cologuard 1959 FIT 1959 FOBT 1959 SDOH Screening 1959 Sigmoidoscopy 1959 Alcohol/Substance Use Screening 1971 Tobacco Screening 1971 Hepatitis C Screening 1977 DTaP/Tdap/Td Vaccines (1 - Tdap) 1978 Pap Smear 1980 Cervical Cancer Screening 1989 HPV/Cotest 1989 Pneumococcal Vaccine: 50+ Years (1 of 1 - PCV) 2009 Zoster Vaccines (1 of 2) 2009 COVID-19 Vaccine (3 - 2024- season) 2025 12/17/2020, 11/26/2020 Influenza Vaccine (#1) 2025 06/24/2018 Mammogram 12/04/2025 12/05/2023, 04/0 12/2023, 12/04/2022, Additional history exists RSV Patients and Patients Aged 60 years or older (1 - 1-dose 75+ series) 2034 Hepatitis B Vaccines Aged Out 07/02/2024 No long er eligible based on patient's age to complete this topic HIB Vaccines Aged Out No longer eligi ble based on patient's age to complete this topic HPV Vaccines Aged Out No longer eligi ble based on patient's age to complete this topic Hepatitis A Vaccines Aged Out No long er eligible based on patient's age to complete this topic IPV Vaccines Aged Out No longer eligi ble based on patient's age to complete this topic Meningococcal B Vaccine Aged Out No l onger eligible based on patient's age to complete this topic Meningococcal Vaccine Aged Out No jos benita eligible based on patient's age to complete this topic RSV under 20 months Aged Out No longe r eligible based on patient's age to complete this topic Rotavirus Vaccines Aged Out No longer eligible based on patient's age to complete this topic
--- OUTSIDE RECORDS SUMMARY | 2025-05-17 19:44 | XMS_ITS | Encounter Summary ---
Author Organization [facility] Address [address] [place] [address] Phone Care Team Providers Care Mammalogist Name Role Phone Ju Earlene Barbara GUEVARA Unavailable [phone] Samantha Stephenson MD Unavailable Kurt Sifuentes DO Unavailable Christel Grayson MD Unavailable Caitie Devlin MD Unavailable Katie Rangel MD Unavailable Navi Robles MD Unavailable Samantha Stephenson MD Primary Care Provider [phone] Samantha Stephenson MD Unavailable [phone] Samantha Stephenson MD Unavailable [phone] Cyrus Yoder DO Primary Care Provider Samantha Stephenson MD Unavailable Encounter Details Date Type Department Care Team (Late st Contact Info) Description 06/22/2020 Procedure Pass [facility] 30 [place] [address] Social History Tobacco Use Types Packs/Day [...] st Contact Info) Description 04/22/2025 Procedure Pass [address] [address] 07/01/2025 2:15 PM EDT Office Visit [address] [address] Cyrus Yoder DO [address] [place] [address] 07/19/2025 1:00 PM EST Office Visit [facility] [address] [place] [address] Drew Garcia DO [address] [place] [address] 02/25/2026 1:30 PM EDT Appointment [address] [address] Vinnie Frias MD 22 [facility], [address] [place] [address] documented as of this encounter Visit Diagnoses Not on filedocumented in this encounter Care Teams Mammalogist Relationship Specialty Start Date End Date Samantha Stephenson MD [address] [place] [address] PCP - General 08/01/17 04/19/24 Cyrus Yoder DO 29 [facility] [place] [address] PCP - General Family Medicine 04/20/24 Earlene Dodd, SUPERVISOR FILLING AND PACKING 30 [place] [address] [email or web address] Historical LMR Provider 06/22/17 Samantha Stephenson MD 15 [place] [address] [email or web address] Historical LMR Provider 06/22/17 Kurt Sifuentes DO [address] [place] [address] [facility], [place] [address] Historical LMR Provider 06/22/17 09/09/21 Christel Grayson MD [address] [address] [email or web address] Historical LMR Provider 06/22/17 Caitie Devlin MD [address] [address] Historical LMR Provider 06/22/17 2 Katie Rangel MD 61 [place] [address] Historical LMR Provider 06/22/17 2 Navi Robles MD [address] [place] [address] Historical LMR Provider 06/22/17 2 Samantha Stephenson MD [address] [place] [email or web address] Insurance Assigned Provider 12/08/22 12/07/23 Samantha Stephenson MD [address] [place] [email or web address] Insurance Assigned Provider 03/07/24 06/07/24 Samantha Stephenson MD 15 [place] [address] Insurance Assigned Provider 07/11/24 08/12/24 documented as of this encounter Additional Source Comments The information contained in this document represents components of the legal health record. It is not the complete legal health record.[facility]
--- OUTSIDE RECORDS SUMMARY | 2025-05-17 19:44 | XMS_ITS | Encounter Summary ---
Author Organization [facility] Address [address] [place] [address] Phone Care Team Providers Care Teacher Learning Disabled Name Role Phone Earlene Dodd Barbara GUEVARA Unavailable [phone] Samantha Stephenson MD Unavailable Kurt Sifuentes DO Unavailable Christel Grayson MD Unavailable Caitie Devlin MD Unavailable [phone] Katie Rangel MD Unavailable Navi Robles MD Unavailable Samantha Stephenson MD Primary Care Provider Samantha Stephenson MD Unavailable Samantha Stephenson MD Unavailable [phone] Samantha Stephenson MD Unavailable Cyrus Yoder DO Primary Care Provider Samantha Stephenson MD Unavailable [phone] Encounter Details Date Type Department Care Team (Late st Contact Info) Description 05/21/2019 Ancillary Orders [facility] Department [address] [place] [address] Samantha Stephenson MD [address] [place] [address] [phone] Breast screening Social History Tobacco Use Types Packs/Day Years Used Date Smoking Tobacco: Never Smokeless Tobacco: Never Alcohol Use Standard Drinks/Week Comments Yes 0 (1 standard drink = 0.6 oz pur e alcohol) Comments No Sex and Gender Information Value Date Recorded Sex Assigned at Female 06/24/2020 5:30 PM EDT Legal Sex Female 9:50 PM EDT Gender Identity Female 06/24/2020 5:30 PM EDT Sexual Orientation Straight 06/24/2020 5: 30 PM EDT documented as of this encounter Plan of Treatment Upcoming Encounters Date Type Department Care Team (Late st Contact Info) Description 04/22/2025 Procedure Pass [address] [address] 07/01/2025 2:15 PM EDT Office Visit [address] [address] Cyrus Yoder DO [address] [place] [address] 07/19/2025 1:00 PM EST Office Visit [facility] [address] [place] [address] Drew Garcia DO [address] [place] [address] 02/25/2026 1:30 PM EDT Appointment [address] [address] Vinnie Frias MD 22 [facility], [address] [phone] documented as of this encounter Results * BI MAMMOGRAM SCREENING WITH TOMOSYNTHESIS WITH CAD (BILATERAL) (08/20/2019 5:40 PM EST) Anatomical Region Laterality Modality Breast Left, Breast Right, Breast Bilateral Bila teral Mammography 08/20/2019 5:55 PM EST Impressions 08/20/2019 6:41 PM EST No mammographic evidence of malignancy. Recommend routine annual surveillance. BI-RADS CATEGORY: 2 - Benign finding. DENSITY: There are scattered fibroglandular densities. POS - CDHMAMA Narrative 08/20/2019 6:41 PM EST 59-year-old female with no current breast symptoms. Comparison made to previous on 07/03/2018 and as far back as 05/03/2009. Interpretation made in conjunction with computer-aided detection and tomosynthesis. There are scattered areas of fibroglandular density. There are two small masses in the right breast which are stable and likely intramammary lymph nodes. There is a similar stable low-density mass in the central left breast at approximately 12:00 which is also likely a lymph node or cyst There are no suspicious masses, areas of architectural distortion, or suspicious clusters of microcalcifications. Procedure Note Tyra Rm MD - 08/20/2019 59-year-old female with no current breast symptoms. Comparison made toprevious on 07/03/2018 and as far back as 05/03/2009. Interpretation madein conjunction with computer-aided detection and tomosynthesis. There are scattered areas of fibroglandular density. There are two smallmasses in the right breast which are stable and likely intramammary lymphnodes. There is a similar stable low-density mass in the central leftbreast at approximately 12:00 which is also likely a lymph node or cyst There are no suspicious masses, areas of architectural distortion, orsuspicious clusters of microcalcifications. IMPRESSION: No mammographic evidence of malignancy. Recommend routine annualsurveillance. BI-RADS CATEGORY: 2 - Benign finding. DENSITY: There are scattered fibroglandular densities. POS - CDHMAMA Samantha Stephenson MD IMG MG EXAMS Final Resul t documented in this encounter Visit Diagnoses Diagnosis Breast screening Breast screening, unspecified Breast screening Breast screening, unspecified documented in this encounter Care Teams Teacher Learning Disabled Relationship Specialty Start Date End Date Samantha Stephenson MD 15 [place] [address] PCP - General 08/01/17 04/19/24 Cyrus Yoder DO [address] [place] [address] [place] [address] PCP - General Family Medicine 04/20/24 Earlene Dodd NP [address] [place] [address] Historical LMR Provider 06/22/17 Samantha Stephenson MD 15 [place] [address] Historical LMR Provider 06/22/17 Kurt Sifuentes DO [address] [place] [address] [facility], [place] [address] Historical LMR Provider 06/22/17 09/09/21 Christel Grayson MD [address] [place] [address] Historical LMR Provider 06/22/17 Caitie Devlin MD [address], [place] [address] Historical LMR Provider 06/22/17 2 Katie Rangel MD [address] [place] [phone] Historical LMR Provider 06/22/17 2 Navi Robles MD [address] [place] [address] Historical LMR Provider 06/22/17 2 Samanhta Stephenson MD 15 [place] [address] [email or web address] Insurance Assigned Provider 01/03/19 02/06/20 Saamntha Stephenson MD [address] [place] [address] Insurance Assigned Provider 12/08/22 12/07/23 Samantha Stephenson MD 15 [place] [address] Insurance Assigned Provider 03/07/24 06/07/24 Samantha Stephenson MD 15 [place] [address] Insurance Assigned Provider 07/11/24 08/12/24 documented as of this encounter Additional Source Comments The information contained in this document represents components of the legal health record. It is not the complete legal health record.[facility]
--- OUTSIDE RECORDS SUMMARY | 2025-05-17 19:44 | XMS_ITS | Encounter Summary ---
Author Organization [facility] Address [address] [place] [address] Phone Care Team Providers Care Cloud Engagement Partner Name Role Phone Earlene Dodd Barbara GUEVARA Unavailable [phone] Samantha Stephenson MD Unavailable Kurt Sifuentes DO Unavailable Christel Grayson MD Unavailable Caitie Devlin MD Unavailable [phone] Katie Rangel MD Unavailable Navi Robles MD Unavailable Samantha Stephenson MD Primary Care Provider [phone] Samantha Stephenson MD Unavailable Samantha Stephenson MD Unavailable [phone] Cyrus Yoder DO Primary Care Provider Samantha Stephenson MD Unavailable [phone] Encounter Details Date Type Department Care Team (Latest Contact Info) Description 06/27/2020 Transcribe Orders [facility] [address] [place] [address] Kristie Ng PA [address] [place] [address] [email or web address] Fatigue, unspecified type (Primary Dx); Routine general medical examination at a health care facility; Leg cramping Social History Tobacco Use Types Packs/Day Years [...] st Contact Info) Description 04/22/2025 Procedure Pass [address] [address] 07/01/2025 2:15 PM EDT Office Visit [address] [place] [address] [address] Cyrus Yoder, DO [address] [place] [address] 07/19/2025 1:00 PM EST Office Visit [facility] [address] [place] [address] Drew Garcia DO [address] [place] [address] 02/25/2026 1:30 PM EDT Appointment [address] [address] Vinnie Frias MD 22 [facility], [address] [address] documented as of this encounter Results * Magnesium (06/27/2020 4:10 PM EDT) MAGNESIUM 2.3 1.6 - 2.6 mg/dL [facility] Blood 06/27/2020 4:10 PM EDT 06/27/2020 4:14 PM EDT Kristie Blume PA LAB BLOOD ORDERABLES Final Resu lt Performing Organization Address City/[facility]/ZIP Co de Phone Number [address] [address] * Vitamin B12 (06/27/2020 4:10 PM EDT) VITAMIN B12 357 232 - 1,245 pg/mL [facility] Blood 06/27/2020 4:10 PM EDT 06/27/2020 4:[address] LouisKristie Blume PA LAB BLOOD ORDERABLES Final Resu lt Performing Organization Address [facility] Co de Phone Number [address] [address] * Folate (06/27/2020 4:10 PM EDT) FOLIC ACID 18.0 4.2 - 19.9 ng/mL [facility] Blood 06/27/2020 4:10 PM EDT 06/27/2020 4:14 PM EDT [facility]LOOD ORDER[facility]LES Final Resu lt Performing Organization Address [facility] Co de Phone Number [address] [address] * CBC and differential (06/27/2020 4:10 PM EDT) WBC 5.39 4.00 - 11.00 K/uL [facility] Comment:Note Reference Range updates to all CBC and Differential results. RBC 4.71 3.72 - 5.30 M/uL [facility] HGB 14.0 11.4 - 15.9 g/dL [facility] Comment:Note updated Referen ce Ranges for all CBC and Differential results. HCT 41.8 34.2 - 46.8 % [facility] PLT 261 140 - 430 K/uL [facility] MCV 88.7 78.0 - 97.0 fL [facility] MCH 29.7 25.0 - 33.0 pg [facility] MCHC 33.5 32.0 - 36.0 g/dL [facility] RDW 12.4 11.0 - 16.0 % [facility] MPV 9.7 8.4 - 12.8 fl [facility] NRBC 0.00 0 /100 WBCs [facility] ABSOLUTE NRBC 0.00 0 K/uL [facility] DIFF METHOD Auto [facility] NEUTS 51.2 43.0 - 75.0 % [facility] LYMPHS 34.9 18.2 - 47.4 % [facility] MONOS 10.0 4.00 - 11.00 % [facility] EOS 2.4 0.0 - 8.0 % [facility] BASOS 1.1 0.0 - 2.0 % [facility] Granulocytes, immature (%) 0.4 0.0 - 0.9 % [facility] ABSOLUTE NEUTS 2.76 1.80 - 7.70 K/uL [facility] ABSOLUTE LYMPHS 1.88 1.00 - 3.10 K/uL [facility] ABSOLUTE MONOS 0.54 0.20 - 0.80 K/uL [facility] ABSOLUTE EOS 0.13 0.00 - 0.80 K/uL [facility] ABSOLUTE BASOS 0.06 0.00 - 0.09 K/uL [facility] Granulocytes, immature 0.02 0.00 - 0.05 K/uL [facility] Blood 06/27/2020 4:10 PM EDT 06/27/2020 4:14 PM EDT us Kristie JASON LAB BLOOD ORDERABLES Final Resu lt [facility] [address] [place] [address] * TSH with reflex (06/27/2020 4:10 PM EDT) Pathologist [facility] TSH 1.33 0.27 - 4.20 uIU/mL [facility] Blood 06/27/2020 4:10 PM EDT 06/27/2020 4:14 PM EDT [facility] BLOOD ORDERABLES Final Resu lt Performing Organization Address City/[facility]/ZIP Co de Phone Number [address] [address] * (ABNORMAL) 25-OH vitamin D (06/27/2020 4:10 PM EDT) Pathologist [facility] 25 OH VIT D (TOTAL) 24(L) 30 - 60 ng/mL [facility] Blood 06/27/2020 4:10 PM EDT 06/27/2020 4:[address] [facility] Berenice ID LAB BLOOD ORDERABLES Final Resu lt Performing Organization Address City/[facility]/ZIP Co de Phone Number [address] [address] * (ABNORMAL) Comprehensive metabolic panel (06/27/2020 4:10 PM EDT) [facility] SODIUM 142 133 - 146 mmol/L [facility] POTASSIUM 4.2 3.3 - 5.1 mmol/L [facility] CHLORIDE 105 96 - 108 mmol/L [facility] CO2 25 21 - 35 mmol/L [facility] BUN 14 6 - 19 mg/dL [facility] CREATININE 0.80 0.5 - 1.5 mg/dL [facility] GLUCOSE 102(H) 70 - 99 mg/dL [facility] ALBUMIN 4.5 3.9 - 4.8 g/dL [facility] TOTAL PROTEIN 7.0 6.5 - 8.0 g/dL [facility] CALCIUM 9.8 8.4 - 10.3 mg/dL [facility] ALKALINE PHOSPHATASE 66 39 - 117 U/L [facility] TOTAL BILIRUBIN 0.4 0.0 - 1.2 mg/dL [facility] AST 31 0 - 37 U/L [facility] ALT 37 0 - 40 U/L [facility] GLOBULIN 2.5 1 - 4.8 g/dL [facility] EGFR 80 >59 mL/min/1.7 3m2 [facility] Comment:Estimated glomerular filtration rate calculated using the CKD-EPI equation. ANION GAP 16 10 - 20 mmol/L [facility] Blood 06/27/2020 4:10 PM EDT 06/27/2020 4:14 PM EDT us Kristie JASON LAB BLOOD ORDERABLES Final Resu lt [address] [address] documented in this encounter Visit Diagnoses Diagnosis Fatigue, unspecified type- Primary Routine general medical examination at a health care facility Leg cramping documented in this encounter Care Teams Cloud Engagement Partner Relationship Specialty Start Date End Date Samantha Stephenson MD [address] [place] [address] PCP - General 08/01/17 04/19/24 Cyrus Yoder DO [address] [place] [address] [place] [address] PCP - General Family Medicine 04/20/24 Earlene Dodd NP [address] [place] [address] Historical LMR Provider 06/22/17 Samantha Stephenson MD [address] [place] [address] Historical LMR Provider 06/22/17 Kurt Sifuentes DO [address] [place] [address] [facility] [place] [address] Historical LMR Provider 06/22/17 09/09/21 Christel Grayson MD [address] [place] [address] [email or web address] Historical LMR Provider 06/22/17 Caitie Devlin MD [address], [place] [address] Historical LMR Provider 06/22/17 2 Katie Rangel MD [address] [place] [phone] Historical LMR Provider 06/22/17 2 Navi Robles MD [address] [place] [address] Historical LMR Provider 06/22/17 2 Samantha Stephenson MD [address] [place] [address] [email or web address] Insurance Assigned Provider 12/08/22 12/07/23 Samantha Stephenson MD [address] [place] [address] [email or web address] Insurance Assigned Provider 03/07/24 06/07/24 Samantha Stephenson MD [address] [place] [address] [email or web address] Insurance Assigned Provider 07/11/24 08/12/24 documented as of this encounter Additional Source Comments The information contained in this document represents components of the legal health record. It is not the complete legal health record.[facility]
--- OUTSIDE RECORDS SUMMARY | 2025-05-17 19:44 | XMS_ITS | Encounter Summary ---
Author Organization [facility] Address [address] [place] [address] Phone Care Team Providers Care Road Machine Runner Name Role Phone Earlene Dodd REFINISHER Unavailable [phone] Samantha Stephenson MD Unavailable [phone] Kurt Sifuentes DO Unavailable Christel Grayson MD Unavailable Caitie Devlin MD Unavailable [phone] Katie Rangel MD Unavailable Navi Robles MD Unavailable Samantha Stephenson MD Primary Care Provider [phone] Samantha Stephenson MD Unavailable [phone] Samantha Stephenson MD Unavailable [phone] Cyrus Yoder DO Primary Care Provider Samantha Stephenson MD Unavailable Encounter Details Date Type Department Care Team (Late st Contact Info) Description 06/22/2020 Ancillary Orders [facility] [address] [place] [address] [place] [address] Earlene Dodd, REFINISHER [address] [place] [address] Breast screening Social History Tobacco Use Types Packs/Day Years Used Date Smoking Tobacco: Former Cigarettes S tarted: 2005 Smokeless Tobacco: Never Alcohol Use Standard Drinks/Week [...] st Contact Info) Description 04/22/2025 Procedure Pass [address] [address] 07/01/2025 2:15 PM EDT Office Visit [address] [address] Cyrus Yoder DO [address] [place] [address] 07/19/2025 1:00 PM EST Office Visit [facility] [address] [place] [address] Drew Garcia DO [address] [place] [address] 02/25/2026 1:30 PM EDT Appointment [address] [address] Vinnie Frias MD 22 [facility], [address] [place] [address] documented as of this encounter Results * (ABNORMAL) BI MAMMOGRAM SCREENING WITH TOMOSYNTHESIS WITH CAD (BILATERAL) (10/17/2020 3:53 PM EST) Anatomical Region Laterality Modality Breast Left, Breast Right, Breast Bilateral Bila teral Mammography 10/17/2020 5:28 PM EST Impressions 10/17/2020 5:43 PM EST RIGHT BREAST: Negative, no evidence of malignancy. Normal interval follow-up is recommended in 12 months. LEFT BREAST: Focal asymmetry in the lateral breast at approximately 3 o'clock position at 4 cm from the nipple. Patient will be called back for additional imaging including spot compression views in CC and MLO, followed by targeted ultrasound. Bi-RADS: BI-RADS CATEGORY: 0 - Incomplete. Need additional imaging evaluation. DENSITY: There are scattered fibroglandular densities. RIGHT RECOMMENDATION DUE DATE: 12 Months Recommendation: Right Mammography Screening LEFT RECOMMENDATION DUE DATE: 1 Month Recommendation: Left Additional Imaging Narrative 10/17/2020 5:43 PM EST STUDY: Bilateral screening mammography with tomosynthesis and CAD TECHNIQUE: Bilateral full-field digital screening mammography is obtained and read in conjunction with computer-aided detection. Tomosynthesis as well as 2-D C view imaging were obtained. COMPARISON: Comparison made to multiple prior, most recent August 20, 2019, and most remote February 25, 2013. Breast MRI on August 16, 2015. BREAST COMPOSITION: There are scattered areas of fibroglandular density RIGHT BREAST: Chronic 1.0 cm mass in the central breast at the posterolateral 4 cm from the nipple (best seen on the tomosynthesis MLO 37/77 and tomosynthesis CC 30/77), correlates with known high proteinaceous cyst seen on MRI in 2014. No significant masses, suspicious calcifications or other abnormalities are seen. LEFT BREAST: There is an approximately 0.5 cm asymmetry in the lateral breast at approximately 3 o'clock position at 4 cm from the nipple (best seen on the tomosynthesis MLO 29/74 and tomosynthesis CC 23/74). No suspicious calcifications or other abnormalities are seen. Procedure Note Marci Clark MD - 10/17/2020 STUDY: Bilateral screening mammography with tomosynthesis and CAD TECHNIQUE: Bilateral full-field digital screening mammography is obtainedand read in conjunction with computer-aided detection. Tomosynthesis aswell as 2-D C view imaging were obtained. COMPARISON: Comparison made to multiple prior, most recent August, and most remote February 25, 2013. Breast MRI on August 16, 2015. BREAST COMPOSITION: There are scattered areas of fibroglandulardensity RIGHT BREAST: Chronic 1.0 cm mass in the central breast at theposterolateral 4 cm from the nipple (best seen on the tomosynthesis MLO3/ and tomosynthesis CC /), correlates with known highproteinaceous cyst seen on MRI in 2014. No significant masses, suspiciouscalcifications or other abnormalities are seen. LEFT BREAST: There is an approximately 0.5 cm asymmetry in the lateralbreast at approximately 3 o'clock position at 4 cm from the nipple (bestseen on the tomosynthesis MLO / and tomosynthesis CC /). Nosuspicious calcifications or other abnormalities are seen. IMPRESSION: RIGHT BREAST: Negative, no evidence of malignancy. Normal intervalfollow-up is recommended in 12 months. LEFT BREAST: Focal asymmetry in the lateral breast at approximately 3o'clock position at 4 cm from the nipple. Patient will be called back foradditional imaging including spot compression views in CC and MLO,followed by targeted ultrasound. Bi-RADS: BI-RADS CATEGORY: 0 - Incomplete. Need additional imagingevaluation. DENSITY: There are scattered fibroglandular densities. RIGHT RECOMMENDATION DUE DATE: 12 Months Recommendation: Right Mammography Screening LEFT RECOMMENDATION DUE DATE: 1 Month Recommendation: Left Additional Imaging Earlene Dodd REFINISHER IMG MG EXAMS Final Result documented in this encounter Visit Diagnoses Diagnosis Breast screening Breast screening, unspecified Breast screening Breast screening, unspecified documented in this encounter Care Teams Road Machine Runner Relationship Specialty Start Date End Date Samantha Stephenson MD [address] [place] [address] [id number] PCP - General 08/01/17 04/19/24 Cyrus Yoder DO [address] [place] [address] [email or web address] PCP - General Family Medicine 04/20/24 Earlene Dodd, REFINISHER [address] [place] [address] [email or web address] Historical LMR Provider 06/22/17 Samantha Stephenson MD [address] [place] [address] [email or web address] Historical LMR Provider 06/22/17 Kurt Sifuentes DO [address] [place] [address] Orthopedics & Sports Medicine, [place] [address] [email or web address] Historical LMR Provider 06/22/17 09/09/21 Christel Grayson MD [address] [place] [address] [email or web address] Historical LMR Provider 06/22/17 Caiite Devlin MD [address], [place] [address] Historical LMR Provider 06/22/17 2 Katie Rangel MD [address] [place] [address] Historical LMR Provider 06/22/17 2 Navi Robles MD [address] [place] [address] Historical LMR Provider 06/22/17 2 Samantha Stephenson MD [address] [place] [address] [email or web address] Insurance Assigned Provider 12/08/22 12/07/23 Samantha Stephenson MD [address] [place] [address] [email or web address] Insurance Assigned Provider 03/07/24 06/07/24 Samantha Stephenson MD [address] [place] [address] [email or web address] Insurance Assigned Provider 07/11/24 08/12/24 documented as of this encounter Additional Source Comments The information contained in this document represents components of the legal health record. It is not the complete legal health record.[facility]
--- OUTSIDE RECORDS SUMMARY | 2025-05-17 19:44 | XMS_ITS | Encounter Summary ---
Author Organization [facility] Address [address] [place] [address] Phone Care Team Providers Care Gluing Machine Operator Name Role Phone Woodcliff LakeEarlene NP Unavailable [phone] Samantha Stephenson MD Unavailable [phone] Samantha Stephenson MD Primary Care Provider Samantha Stephenson MD Unavailable [phone] Cyrus Yoder DO Primary Care Provider [phone] Samantha Stephenson MD Unavailable [phone] Reason for Referral * Outpatient Procedure - Closed Specialty Diagnoses / Procedures Referred By Zuly huang Referred To Contact Radiology Diagnoses Gastroparesis Procedures NM Gastric Emptying Sg Winslow MD [address] [place] [address] Phone: tel: fax: [email or web address] Referral ID Status Reason Start Date Expiration Date Visits Re quested Visits Authorized [id number] Closed 12/09/2023 12/08/2024 1 1 Encounter Details Date Type Department Care Team (Latest Contact Info) Description 12/09/2023 Transcribe Orders [facility] Department [address] [place] [address] Sg Winslow MD [address] [place] [address] Gastroparesis (Primary Dx) Social History Tobacco Use Types Packs/Day Years Used Date Smoking Tobacco: Former Cigarettes 1 32.4 0 09/02/1972 - 01/31/2005 Smokeless Tobacco: Never Comments:From 5220-3963 only rarely smoked Alcohol Use Standard Drinks/Week [...] Contact Info) Description 04/22/2025 Procedure Pass [address] [address] 07/01/2025 2:15 PM EDT Office Visit [address] [address] Cryus Yoder, DO [address] [place] [address] 07/19/2025 1:00 PM EST Office Visit [facility] [address] [place] [address] [place] [address] [email or web address] 02/25/2026 1:30 PM EDT Appointment [address] [address] Vinnie Frias MD [address] [place] [address], [address] [place] [address] [email or web address] documented as of this encounter Results * NM GASTRIC EMPTYING SOLID PHASE (12/17/2023 2:25 PM EDT) Anatomical Region Laterality Modality Abdomen, Pelvis Nuclear Medicine 12/18/2023 12:4 6 AM EDT Impressions 12/18/2023 12:47 AM EDT Gastric emptying study within normal limits. Narrative 12/18/2023 12:47 AM EDT NM GASTRIC EMPTYING SOLID PHASE Radionuclide gastric emptying scan: COMPARISON: None TECHNIQUE: A dose of 0.92 mCi technetium 99m sulfur colloid was given orally mixed with a standard meal. Intermittent upright imaging of the abdomen was performed immediately, and at 1 and 2 hours, and at 4 hours if indicated. 100% of the standardized meal was consumed. FINDINGS: Gastric emptying was: 1 hr: 10.8% 2 hrs: 43.3% 4 hrs: 96.1% According to accepted international standards using this technique, median normal values for emptying are: 31% at 1 hr, 76% at 2 hrs, and 99% at 4 hours. 5th percentile values for emptying are: 10% at 1 hr, 40% at 2 hrs, and 90% at 4 hours. These values apply for ingestion of 50% or greater of the standard meal (PMID: 26273470) and approximate the normative emptying values of [employer] (PMID: 12091029). Procedure Note Vitor Young MD - 12/18/2023 NM GASTRIC EMPTYING SOLID PHASE Radionuclide gastric emptying scan: COMPARISON: None TECHNIQUE: A dose of 0.92 mCi technetium 99m sulfur colloid was given orally mixedwith a standard meal. Intermittent upright imaging of the abdomen wasperformed immediately, and at 1 and 2 hours, and at 4 hours if indicated.100% of the standardized meal was consumed. FINDINGS: Gastric emptying was: 1 hr: 10.8% 2 hrs: 43.3% 4 hrs: 96.1% According to accepted international standards using this technique, mediannormal values for emptying are: 31% at 1 hr, 76% at 2 hrs, and 99% at 4 hours. 5th percentile values for emptying are: 10% at 1 hr, 40% at 2 hrs, and 90% at 4 hours. These values apply for ingestion of 50% or greater of the standard meal(PMID: 59819999) and approximate the normative emptying values of[facility] (PMID: [id number]). IMPRESSION: Gastric emptying study within normal limits. Sg Winslow MD [facility] Final Result documented in this encounter Visit Diagnoses Diagnosis Gastroparesis- Primary Gastroparesis documented in this encounter Care Teams Gluing Machine Operator Relationship Specialty Start Date End Date Samantha Stephenson MD [address] [place] [address] PCP - General 08/01/17 04/19/24 Cyrus Yoder DO [address] [place] [address] [place] [address] PCP - General Family Medicine 04/20/24 Earlene Dodd NP [address] [place] [address] Historical LMR Provider 06/22/17 Samantha Stephenson MD [address] [place] [address] Historical LMR Provider 06/22/17 Samantha Stephenson MD [address] [place] [address] [email or web address] Insurance Assigned Provider 03/07/24 06/07/24 Samantha Stephenson MD [address] [place] [address] [email or web address] Insurance Assigned Provider 07/11/24 08/12/24 documented as of this encounter Additional Source Comments The information contained in this document represents components of the legal health record. It is not the complete legal health record.[facility]
--- OUTSIDE RECORDS SUMMARY | 2025-05-17 19:44 | XMS_ITS | Encounter Summary ---
Author Organization [facility] Address [address] [place] [address] Phone Care Team Providers Care Human Resources Professional Name Role Phone Earlene Dodd Barbara GUEVARA Unavailable [phone] Samantha Stephenson MD Unavailable [phone] Kurt Sifuentes DO Unavailable Christel Grayson MD Unavailable Caitie Devlin MD Unavailable [phone] Katie Rangel MD Unavailable Navi Robles MD Unavailable Samantha Stephenson MD Primary Care Provider [phone] Samantha Stephenson MD Unavailable [phone] Samantha Stephenson MD Unavailable Samantha Stephenson MD Unavailable [phone] Cyrus Yoder DO Primary Care Provider Samantha Stephenson MD Unavailable Encounter Details Date Type Department Care Team (Late st Contact Info) Description 05/27/2018 Ancillary Orders [facility] Department [address] [place] [address] Samantha Stephenson MD [address] [place] [address] [id number] Breast screening Social History Tobacco Use Types [...] st Contact Info) Description 04/22/2025 Procedure Pass [address] [address] 07/01/2025 2:15 PM EDT Office Visit [address] [address] Cyrus Yoder DO [address] [place] [address] 07/19/2025 1:00 PM EST Office Visit [facility] [address] [place] [address] Drew Garcia DO [address] [place] [address] 02/25/2026 1:30 PM EDT Appointment [address] [address] Vinnie Frias MD 22 [facility], [address] [place] [address] documented as of this encounter Results * BI MAMMOGRAM SCREENING WITH TOMOSYNTHESIS WITH CAD (BILATERAL) (07/03/2018 9:32 AM EDT) Anatomical Region Laterality Modality Breast Left, Breast Right, Breast Bilateral Bila teral Mammography 07/03/2018 10:5 6 AM EDT Impressions 07/03/2018 10:58 AM EDT No mammographic evidence of malignancy. BI-RADS CATEGORY: 2 - Benign finding. DENSITY: There are scattered fibroglandular densities. POS - CDHMAMA Narrative 07/03/2018 10:58 AM EDT Standard digital full-field 2-D C view and two-plane tomographic imaging was performed and compared with multiple prior studies, most recently 05/01/2017, with utilization of computer-aided detection. The breasts are composed of scattered fibroglandular densities. The stromal markings are essentially unchanged in overall appearance and distribution. No dominant spiculated mass, suspicious clustered microcalcifications, or focal zone of pathologic skin thickening or retraction are noted to have arisen in the interim. The chronic partially circumscribed density in the central right breast is stable in size and configuration. Procedure Note Armando Aldrich MD - 07/03/2018 Standard digital full-field 2-D C view and two-plane tomographic imagingwas performed and compared with multiple prior studies, most xbhuogcy49/30/2017, with utilization of computer-aided detection. The breasts are composed of scattered fibroglandular densities. Thestromal markings are essentially unchanged in overall appearance anddistribution. No dominant spiculated mass, suspicious clusteredmicrocalcifications, or focal zone of pathologic skin thickening orretraction are noted to have arisen in the interim. The chronic partiallycircumscribed density in the central right breast is stable in size andconfiguration. IMPRESSION: No mammographic evidence of malignancy. BI-RADS CATEGORY: 2 - Benign finding. DENSITY: There are scattered fibroglandular densities. POS - CDHMAMA Samantha Stephenson MD IMG MG EXAMS Final Resul t documented in this encounter Visit Diagnoses Diagnosis Breast screening Breast screening, unspecified Breast screening Breast screening, unspecified documented in this encounter Care Teams Human Resources Professional Relationship Specialty Start Date End Date Samantha Stephenson MD [address] [place] [address] PCP - General 08/01/17 04/19/24 Cyrus Yoder DO [address] [facility] [place] [address] PCP - General Family Medicine 04/20/24 Earlene Dodd, ISMAEL [address] [place] [address] Historical LMR Provider 06/22/17 Samantha Stephenson MD [address] [place] [address] Historical LMR Provider 06/22/17 Kurt Sifuentes DO [address] [place] [address] Orthopedics & Sports Medicine, [place] [address] Historical LMR Provider 06/22/17 09/09/21 Christel Grayson MD [address] [address] Historical LMR Provider 06/22/17 Caitie Devlin MD [address] [place] [address] Historical LMR Provider 06/22/17 2 Katie Rangel MD [address] [place] [address] Historical LMR Provider 06/22/17 2 Navi Robles MD [address] [place] [address] Historical LMR Provider 06/22/17 2 Samantha Stephenson MD [address] [place] [address] [email or web address] Insurance Assigned Provider 01/03/19 02/06/20 Samantha Stephenson MD [address] [place] [address] [email or web address] Insurance Assigned Provider 12/08/22 12/07/23 Samantha Stephenson MD [address] [place] [address] [email or web address] Insurance Assigned Provider 03/07/24 06/07/24 Samantha Stephenson MD [address] [place] [address] [email or web address] Insurance Assigned Provider 07/11/24 08/12/24 documented as of this encounter Additional Source Comments The information contained in this document represents components of the legal health record. It is not the complete legal health record.[facility]
--- OUTSIDE RECORDS SUMMARY | 2025-05-17 19:45 | XMS_ITS | Encounter Summary ---
Author Organization [facility] Address [address] [place] [address] Phone Care Team Providers Care Commutator V Ring Assembler Name Role Phone Earlene Dodd Barbara GUEVARA Unavailable [phone] Samantha Stephenson MD Unavailable Samantha Stephenson MD Primary Care Provider Samantha Stephenson MD Unavailable [phone] Samantha Stephenson MD Unavailable [phone] Cyrus Yoder DO Primary Care Provider [phone] Samantha Stephenson MD Unavailable Encounter Details Date Type Department Care Team (Late st Contact Info) Description 06/28/2023 Ancillary Orders [facility], X-Ray - [address] [address] Kristie Ng PA [address] [place] [address] [email or web address] Cough, unspecified type Social History Tobacco Use Types Packs/Day Years [...] st Contact Info) Description 04/22/2025 Procedure Pass [address] [address] 07/01/2025 2:15 PM EDT Office Visit [address] [address] Cyrus Yoder, DO [address] [place] [address] 07/19/2025 1:00 PM EST Office Visit [facility] [address] [place] [address] Drew Garcia DO [address] [place] [address] 02/25/2026 1:30 PM EDT Appointment [address] [address] Vinnie Frias MD 22 [facility], [address] [place] [address] documented as of this encounter Results * XR CHEST PA AND LATERAL 2 VIEWS (06/28/2023 10:34 AM EDT) Anatomical Region Laterality Modality Chest Computed Radiogr aphy 06/28/2023 11:0 3 AM EDT Impressions 06/28/2023 11:05 AM EDT Left upper lobe/lingula atelectasis. Narrative 06/28/2023 11:05 AM EDT XR CHEST PA AND LATERAL 2 VIEWS COMPARISON: None FINDINGS: Devices/Tubes/Lines: None. Lungs: A band of left upper lobe/lingula atelectasis is identified. No acute infiltrate is seen. Pleura: No pleural effusion or pneumothorax. Heart/Mediastinum: Cardiac silhouette and mediastinum are unremarkable. Bones/Soft Tissues: Bony elements are within normal limits. Procedure Note Alistair Kyle MD - 06/28/2023 XR CHEST PA AND LATERAL 2 VIEWS COMPARISON: None FINDINGS: Devices/Tubes/Lines: None. Lungs: A band of left upper lobe/lingula atelectasis is identified. Noacute infiltrate is seen. Pleura: No pleural effusion or pneumothorax. Heart/Mediastinum: Cardiac silhouette and mediastinum are unremarkable. Bones/Soft Tissues: Bony elements are within normal limits. IMPRESSION: Left upper lobe/lingula atelectasis. Kristie JASON IMG XR CHEST Final Result documented in this encounter Visit Diagnoses Diagnosis Cough, unspecified type Cough, unspecified type documented in this encounter Care Teams Commutator V Ring Assembler Relationship Specialty Start Date End Date Samantha Stephenson MD [address] [place] [address] PCP - General 08/01/17 04/19/24 Cyrus Yoder DO [address] [place] [address] [place] [address] PCP - General Family Medicine 04/20/24 Earlene Dodd NP [address] [place] [address] [email or web address] Historical LMR Provider 06/22/17 Samantha Stephenson MD [address] [place] [address] [email or web address] Historical LMR Provider 06/22/17 Samantha Stephenson MD [address] [place] [address] [email or web address] Insurance Assigned Provider 12/08/22 12/07/23 Samantha Stephenson MD [address] [place] [address] [email or web address] Insurance Assigned Provider 03/07/24 06/07/24 Samantha Stephenson MD [address] [place] [address] [email or web address] Insurance Assigned Provider 07/11/24 08/12/24 documented as of this encounter Additional Source Comments The information contained in this document represents components of the legal health record. It is not the complete legal health record.[facility]
--- OUTSIDE RECORDS SUMMARY | 2025-05-17 19:45 | XMS_ITS | Encounter Summary ---
Author Organization [facility] Address [address] [place] [address] Phone Care Team Providers Care Keyboard Action Assembler Name Role Phone Earlene Dodd Barbara GUEVARA Unavailable [phone] Samantha Stephenson MD Unavailable Samantha Stephenson MD Primary Care Provider Samantha Stephenson MD Unavailable [phone] Samantha Stephenson MD Unavailable [phone] Cyrus Yoder DO Primary Care Provider [phone] Samantha Stephenson MD Unavailable Encounter Details Date Type Department Care Team (Late st Contact Info) Description 06/28/2023 Ancillary Orders [facility], X-Ray - [address] [address] Kristie Ng PA [address] [place] [address] [email or web address] Cough, unspecified type Social History Tobacco Use [...] st Contact Info) Description 04/22/2025 Procedure Pass [address] [address] 07/01/2025 2:15 PM EDT Office Visit [address] [address] Cyrus Yoder, DO [address] [place] [address] 07/19/2025 1:00 PM EST Office Visit [facility] [address] [place] [address] Drew Garcia, DO [address] [place] [address] 02/25/2026 1:30 PM EDT Appointment [address] [address] Vinnie Frias MD 22 [facility], [address] [place] [address] documented as of this encounter Visit Diagnoses Diagnosis Cough, unspecified type documented in this encounter Care Teams Keyboard Action Assembler Relationship Specialty Start Date End Date Samantha Stephenson MD 15 [place] [address] PCP - General 08/01/17 04/19/24 Cyrus Yoder DO 29 [facility] [place] [address] PCP - General Family Medicine 04/20/24 Earlene Dodd NP [address] [place] [address] [email or web address] Historical LMR Provider 06/22/17 Samantha Stephenson MD [address] [place] [address] [email or web address] Historical LMR Provider 06/22/17 Samantha Stephenson MD [address] [place] [address] Insurance Assigned Provider 12/08/22 12/07/23 Samantha Stephenson MD [address] [place] [address] Insurance Assigned Provider 03/07/24 06/07/24 Samantha Stephenson MD 15 [place] [address] Insurance Assigned Provider 07/11/24 08/12/24 documented as of this encounter Additional Source Comments The information contained in this document represents components of the legal health record. It is not the complete legal health record.[facility]
--- OUTSIDE RECORDS SUMMARY | 2025-05-17 19:45 | XMS_ITS | Encounter Summary ---
Author Organization [facility] Address [address] [place] [address] Phone Care Team Providers Care Career Developer Name Role Phone Earlene Dodd UX DESIGN MANAGER Unavailable [phone] Samantha Stephenson MD Unavailable [phone] Samantha Stephenson MD Primary Care Provider [phone] Samantha Stephenson MD Unavailable [phone] Samantha Stephenson MD Unavailable [phone] Cyrus Yoder DO Primary Care Provider [phone] Samantha Stephenson MD Unavailable [phone] Encounter Details Date Type Department Care Team (Latest Contact Info) Description 07/27/2022 Transcribe Orders Virtual Department 30 [place] [address] Earlene Dodd, UX DESIGN MANAGER 30 [place] [address] [email or web address] Encounter for screening mammogram for malignant neoplasm of breast (Primary Dx) Social History Tobacco Use Types [...] Contact Info) Description 04/22/2025 Procedure Pass [address] [address] 07/01/2025 2:15 PM EDT Office Visit [address] [address] Cyrus Yoder, DO 29 [place] [address] 07/19/2025 1:00 PM EST Office Visit [facility] [address] [place] [address] Drew Garcia DO 22 [place] [address] 02/25/2026 1:30 PM EDT Appointment [address] [address] Vinnie Frias MD [address] [place] [address], [address] [place] [address] documented as of this encounter Results * BI MAMMOGRAM SCREENING WITH TOMOSYNTHESIS WITH CAD (BILATERAL) (12/04/2022 1:37 PM EDT) Anatomical Region Laterality Modality Breast Left, Breast Right, Breast Bilateral Bila teral Mammography 12/06/2022 9:09 AM EDT Impressions 12/06/2022 9:13 AM EDT No findings suspicious for malignancy. In the absence of a worrisome palpable abnormality, annual screening mammography is recommended. BI-RADS CATEGORY: 2 - Benign finding. DENSITY: There are scattered fibroglandular densities. Narrative 12/06/2022 9:13 AM EDT AVAILABLE COMPARISON: 10/25/2021 through 01/08/2003. Bilateral 3-D tomosynthesis with 2-D reconstructions in the CC and MLO projection. Computer-aided detection system also utilized. No new mass, asymmetry, architectural distortion or suspicious calcifications have become apparent in either breast. Chronic circumscribed mass central right breast unchanged. Procedure Note Riley Almonte MD - 12/06/2022 AVAILABLE COMPARISON: 10/25/2021 through 01/08/2003. Bilateral 3-D tomosynthesis with 2-D reconstructions in the CC and MLOprojection. Computer-aided detection system also utilized. No new mass, asymmetry, architectural distortion or suspiciouscalcifications have become apparent in either breast. Chronic circumscribed mass central right breast unchanged. IMPRESSION: No findings suspicious for malignancy. In the absence of a worrisomepalpable abnormality, annual screening mammography is recommended. BI-RADS CATEGORY: 2 - Benign finding. DENSITY: There are scattered fibroglandular densities. Earlene Dodd NP IMG MG EXAMS Final Result documented in this encounter Visit Diagnoses Diagnosis Encounter for screening mammogram for malignant neoplasm of breast- Primary Encounter for screening mammogram for malignant neoplasm of breast documented in this encounter Care Teams Career Developer Relationship Specialty Start Date End Date Samantha Stephenson MD [address] [place] [address] PCP - General 08/01/17 04/19/24 Cyrus Yoder DO [address] [place] [address] [place] [address] PCP - General Family Medicine 04/20/24 [place] [address] [email or web address] Historical LMR Provider 06/22/17 Samantha Stephenson MD [address] [place] [address] [email or web address] Historical LMR Provider 06/22/17 Samantha Stephenson MD [address] [place] [address] [email or web address] Insurance Assigned Provider 12/08/22 12/07/23 Samantha Stephenson MD [address] [place] [address] [email or web address] Insurance Assigned Provider 03/07/24 06/07/24 Samantha Stephenson MD [address] [place] [address] [email or web address] Insurance Assigned Provider 07/11/24 08/12/24 documented as of this encounter Additional Source Comments The information contained in this document represents components of the legal health record. It is not the complete legal health record.[facility]
--- OUTSIDE RECORDS SUMMARY | 2025-05-17 19:45 | XMS_ITS | Encounter Summary ---
Author Organization [facility] Address [address] [place] [address] Phone Care Team Providers Care Career Development Counselor Name Role Phone Ju Earlene Jimenez NP Unavailable [phone] Samantha Stephenson MD Unavailable [phone] Samantha Stephenson MD Primary Care Provider Samantha Stephenson MD Unavailable [phone] Cyrus Yoder DO Primary Care Provider [phone] Samantha Stephenson MD Unavailable [phone] Encounter Details Date Type Department Care Team (Late st Contact Info) Description 03/10/2024 Procedure Pass OR Admitting Dept - Virtual Department 30 [place] [address] Social History Tobacco Use Types Packs/Day Years Used Date Smoking Tobacco: Former Cigarettes 1 32.4 0 09/02/1972 - 01/31/2005 Smokeless Tobacco: Never Comments:From 1644-0972 only rarely smoked Alcohol Use Standard Drinks/Week Comments Yes 6 (1 standard drink = 0.6 oz pur e alcohol) Education Answer Date Recorded Are you interested [...] st Contact Info) Description 04/22/2025 Procedure Pass [address] [address] 07/01/2025 2:15 PM EDT Office Visit [address] [address] Cyrus Yoder DO [address] [place] [address] 07/19/2025 1:00 PM EST Office Visit [facility] [address] [place] [address] Drew Garcia DO [address] [place] [address] 02/25/2026 1:30 PM EDT Appointment [address] [address] Vinnie Frias MD [address] [place] [address], [address] [place] [address] documented as of this encounter Visit Diagnoses Not on filedocumented in this encounter Care Teams Career Development Counselor Relationship Specialty Start Date End Date Samantha Stephenson MD [address] [place] [address] PCP - General 08/01/17 04/19/24 Cyrus Yoder DO 29 [facility] [place] [address] [email or web address] PCP - General Family Medicine 04/20/24 Earlene Dodd NP 30 [place] [address] [email or web address] Historical LMR Provider 06/22/17 Samantha Stephenson MD 15 [place] [address] [email or web address] Historical LMR Provider 06/22/17 Samantha Stephenson MD 15 [place] [address] [email or web address] Insurance Assigned Provider 03/07/24 06/07/24 Samantha Stephenson MD 15 [place] [address] [email or web address] Insurance Assigned Provider 07/11/24 08/12/24 documented as of this encounter Additional Source Comments The information contained in this document represents components of the legal health record. It is not the complete legal health record.[facility]
--- OUTSIDE RECORDS SUMMARY | 2025-05-17 19:45 | XMS_ITS | Encounter Summary ---
Author Organization [facility] Address [address] [place] [address] Phone Care Team Providers Care Morals Squad Police Officer Name Role Phone Earlene Dodd Barbara GUEVARA Unavailable [phone] Samantha Stephenson MD Unavailable Kurt Sifuentes DO Unavailable Christel Grayson MD Unavailable Caitie Devlin MD Unavailable [phone] Katie Rangel MD Unavailable Navi Robles MD Unavailable Samantha Stephenson MD Primary Care Provider [phone] Samantha Stephenson MD Unavailable [phone] Samantha Stephenson MD Unavailable [phone] Cyrus Yoder DO Primary Care Provider Samantha Stephenson MD Unavailable [phone] Encounter Details Date Type Department Care Team (Late st Contact Info) Description 08/08/2021 Procedure Pass [facility] 30 [place] [address] Social History Tobacco Use Types [...] st Contact Info) Description 04/22/2025 Procedure Pass [address] [address] 07/01/2025 2:15 PM EDT Office Visit [address] [address] Cyrus Yoder DO [address] [place] [address] 07/19/2025 1:00 PM EST Office Visit [facility] [address] [place] [address] Drew Garcia DO [address] [place] [address] 02/25/2026 1:30 PM EDT Appointment [address] [address] Vinnie Frias MD 22 [facility], [address] [place] [address] documented as of this encounter Visit Diagnoses Not on filedocumented in this encounter Care Teams Morals Squad Police Officer Relationship Specialty Start Date End Date Samantha Stephenson MD [address] [place] [address] PCP - General 08/01/17 04/19/24 Cyrus Yoder DO [address] [facility] [place] [address] PCP - General Family Medicine 04/20/24 Earlene Dodd, LITIGATION SECRETARY 30 [place] [address] [email or web address] Historical LMR Provider 06/22/17 Samantha Stephenson MD 15 [place] [address] [email or web address] Historical LMR Provider 06/22/17 Kurt Sifuentes DO [address] [place] [address] [facility], [place] [address] [email or web address] Historical LMR Provider 06/22/17 09/09/21 Christel Grayson MD [address] [address] [email or web address] Historical LMR Provider 06/22/17 Caitie Devlin MD [address] [address] Historical LMR Provider 06/22/17 2 Katie Rangel MD 61 [place] [address] Historical LMR Provider 06/22/17 2 Navi Robles MD [address] [place] [address] Historical LMR Provider 06/22/17 2 Samantha Stephenson MD [address] [place] [address] [email or web address] Insurance Assigned Provider 12/08/22 12/07/23 Samantha Stephenson MD [address] [place] [address] Insurance Assigned Provider 03/07/24 06/07/24 Samantha Stephenson MD [address] [place] [address] [email or web address] Insurance Assigned Provider 07/11/24 08/12/24 documented as of this encounter Additional Source Comments The information contained in this document represents components of the legal health record. It is not the complete legal health record.[facility]
--- OUTSIDE RECORDS SUMMARY | 2025-05-17 19:45 | XMS_ITS | Encounter Summary ---
Author Organization [facility] Address [address] [place] [address] Phone Care Team Providers Care Vp Integrity Name Role Phone Earlene Dodd Barbara GUEVARA Unavailable [phone] Samantha Stephenson MD Unavailable Kurt Sifuentes DO Unavailable Christel Grayson MD Unavailable Caitie Devlin MD Unavailable [phone] Katie Rangel MD Unavailable Navi Robles MD Unavailable Samantha Stephenson MD Primary Care Provider [phone] Samantha Stephenson MD Unavailable [phone] Samantha Stephenson MD Unavailable [phone] Cyrus Yoder DO Primary Care Provider Samantha Stephenson MD Unavailable Encounter Details Date Type Department Care Team (Latest Contact Info) Description 05/11/2021 Transcribe Orders Virtual Department 30 [place] [address] Kristie Ng PA [address] [place] [address] [email or web address] Right thigh pain (Primary Dx); Radiculopathy, unspecified spinal region Social History Tobacco Use Types Packs/Day Years [...] st Contact Info) Description 04/22/2025 Procedure Pass [address] [address] 07/01/2025 2:15 PM EDT Office Visit [address] [address] Cyrus Yoder DO [address] [place] [address] 07/19/2025 1:00 PM EST Office Visit [facility] [address] [place] [address] Drew Garcia DO [address] [place] [address] 02/25/2026 1:30 PM EDT Appointment [address] [address] Vinnie Frias MD [address] [place] [address], [address] [place] [address] documented as of this encounter Results * XR LUMBOSACRAL SPINE 4 OR MORE VIEWS (05/17/2021 3:53 PM EDT) Anatomical Region Laterality Modality L-spine Computed Radiogr aphy 05/17/2021 5:28 PM EDT Impressions 05/17/2021 5:32 PM EDT No evidence of a displaced fracture or dislocation involving the lumbar spine, the pelvis, or the right femoral shaft. Narrative 05/17/2021 5:32 PM EDT XR LUMBOSACRAL SPINE 4 OR MORE VIEWS, XR FEMUR 2 OR MORE VIEWS (RIGHT) COMPARISON: HIP-PEL 2-3 V RT FINDINGS: Pelvis and lumbosacral spine: There is mild anterolisthesis of L5 on S1. The height, alignment, and the configuration of the lumbar vertebral bodies is otherwise normal. There is no evidence of a displaced fracture or dislocation. Degenerative changes at the L5/S1 level are noted and may be resulting in mild narrowing of the bony neural foramina. There has been a prior right hip arthroplasty. The hardware is incompletely visualized and evaluated. Within the limits of technique, there is no evidence of a pelvic fracture. The sacrum is obscured by the overlying bowel gas but does not demonstrate any obvious abnormality. Right femur: There has been a prior right hip replacement. The hardware is well seated. There is no evidence of hardware failure, loosening, complications. There is no evidence of a periprosthetic fracture. Procedure Note Bernard Portillo MD, PhD - 05/17/2021 XR LUMBOSACRAL SPINE 4 OR MORE VIEWS, XR FEMUR 2 OR MORE VIEWS (RIGHT) COMPARISON: HIP-PEL 2-3 V RT FINDINGS: Pelvis and lumbosacral spine: There is mild anterolisthesis of L5 on S1.The height, alignment, and the configuration of the lumbar vertebralbodies is otherwise normal. There is no evidence of a displaced fractureor dislocation. Degenerative changes at the L5/S1 level are noted and may be resulting inmild narrowing of the bony neural foramina. There has been a prior right hip arthroplasty. The hardware isincompletely visualized and evaluated. Within the limits of technique,there is no evidence of a pelvic fracture. The sacrum is obscured by theoverlying bowel gas but does not demonstrate any obvious abnormality. Right femur: There has been a prior right hip replacement. The hardware is well seated.There is no evidence of hardware failure, loosening, complications. Thereis no evidence of a periprosthetic fracture. IMPRESSION: No evidence of a displaced fracture or dislocation involving the lumbarspine, the pelvis, or the right femoral shaft. Kristie JASON IMG XR SPINE Final Result * XR FEMUR (RIGHT) 2 VIEWS (05/17/2021 3:52 PM EDT) Anatomical Region Laterality Modality Thigh Right Computed Radiogr aphy 05/17/2021 5:28 PM EDT Impressions 05/17/2021 5:32 PM EDT No evidence of a displaced fracture or dislocation involving the lumbar spine, the pelvis, or the right femoral shaft. Narrative 05/17/2021 5:32 PM EDT XR LUMBOSACRAL SPINE 4 OR MORE VIEWS, XR FEMUR 2 OR MORE VIEWS (RIGHT) COMPARISON: HIP-PEL 2-3 V RT FINDINGS: Pelvis and lumbosacral spine: There is mild anterolisthesis of L5 on S1. The height, alignment, and the configuration of the lumbar vertebral bodies is otherwise normal. There is no evidence of a displaced fracture or dislocation. Degenerative changes at the L5/S1 level are noted and may be resulting in mild narrowing of the bony neural foramina. There has been a prior right hip arthroplasty. The hardware is incompletely visualized and evaluated. Within the limits of technique, there is no evidence of a pelvic fracture. The sacrum is obscured by the overlying bowel gas but does not demonstrate any obvious abnormality. Right femur: There has been a prior right hip replacement. The hardware is well seated. There is no evidence of hardware failure, loosening, complications. There is no evidence of a periprosthetic fracture. Procedure Note Bernard Portillo MD, PhD - 05/17/2021 XR LUMBOSACRAL SPINE 4 OR MORE VIEWS, XR FEMUR 2 OR MORE VIEWS (RIGHT) COMPARISON: HIP-PEL 2-3 V RT FINDINGS: Pelvis and lumbosacral spine: There is mild anterolisthesis of L5 on S1.The height, alignment, and the configuration of the lumbar vertebralbodies is otherwise normal. There is no evidence of a displaced fractureor dislocation. Degenerative changes at the L5/S1 level are noted and may be resulting inmild narrowing of the bony neural foramina. There has been a prior right hip arthroplasty. The hardware isincompletely visualized and evaluated. Within the limits of technique,there is no evidence of a pelvic fracture. The sacrum is obscured by theoverlying bowel gas but does not demonstrate any obvious abnormality. Right femur: There has been a prior right hip replacement. The hardware is well seated.There is no evidence of hardware failure, loosening, complications. Thereis no evidence of a periprosthetic fracture. IMPRESSION: No evidence of a displaced fracture or dislocation involving the lumbarspine, the pelvis, or the right femoral shaft. Kristie JASON IMG XR LOWER EXTREMITY Final Re sult documented in this encounter Visit Diagnoses Diagnosis Right thigh pain- Primary Pain in soft tissues of limb Radiculopathy, unspecified spinal region Right thigh pain Pain in soft tissues of limb Radiculopathy, unspecified spinal region Right thigh pain Pain in soft tissues of limb Radiculopathy, unspecified spinal region documented in this encounter Care Teams Vp Integrity Relationship Specialty Start Date End Date Samantha Stephenson MD [address] [place] [address] PCP - General 08/01/17 04/19/24 Cyrus Yoder DO 29 [facility] [place] [address] PCP - General Family Medicine 04/20/24 Earlene Dodd NP 30 [place] [address] [email or web address] Historical LMR Provider 06/22/17 Samantha Stephenson MD 15 [place] [address] [email or web address] Historical LMR Provider 06/22/17 Kurt Sifuentes DO [address] [place] [address] Orthopedics [facility] Sports Medicine, [place] [address] Historical LMR Provider 06/22/17 09/09/21 Christel Grayson MD [address] [place] [address] [email or web address] Historical LMR Provider 06/22/17 Caitie Devlin MD [address], [place] [address] Historical LMR Provider 06/22/17 2 Katie Rangel MD 61 [place] [address] Historical LMR Provider 06/22/17 2 Navi Robles MD [address] [place] [address] Historical LMR Provider 06/22/17 2 Samantha Stephenson MD 15 [place] [address] [email or web address] Insurance Assigned Provider 12/08/22 12/07/23 Samantha Stephenson MD 15 [place] [address] [email or web address] Insurance Assigned Provider 03/07/24 06/07/24 Samantha Stephenson MD 15 [place] [address] [email or web address] Insurance Assigned Provider 07/11/24 08/12/24 documented as of this encounter Additional Source Comments The information contained in this document represents components of the legal health record. It is not the complete legal health record.[facility]
--- OUTSIDE RECORDS SUMMARY | 2025-05-17 19:45 | XMS_ITS | Encounter Summary ---
Author Organization [facility] Address [address] [place] [address] Phone Care Team Providers Care Crm Developer Name Role Phone Earlene Dodd DIRECTOR PHARMACY SERVICES Unavailable [phone] Samantha Stephenson MD Unavailable [phone] Kurt Sifuentes DO Unavailable Christel Grayson MD Unavailable Caitie Devlin MD Unavailable [phone] Katie Rangel MD Unavailable Navi Robles MD Unavailable Samantha Stephenson MD Primary Care Provider [phone] Samantha Stephenson MD Unavailable [phone] Samantha Stephenson MD Unavailable [phone] Cyrus Yoder DO Primary Care Provider Samantha Stephenson MD Unavailable [phone] Encounter Details Date Type Department Care Team (Latest Contact Info) Description 08/08/2021 Transcribe Orders Virtual Department 30 [place] [address] Earlene Dodd, DIRECTOR PHARMACY SERVICES 30 [place] [address] [email or web address] Breast screening (Primary Dx) Social History Tobacco Use Types [...] st Contact Info) Description 04/22/2025 Procedure Pass [address] [address] 07/01/2025 2:15 PM EDT Office Visit [address] [address] Cyrus Yoder DO [address] [place] [address] 07/19/2025 1:00 PM EST Office Visit [facility] 22 [place] [address] Drew Garcia DO [address] [place] [address] 02/25/2026 1:30 PM EDT Appointment [address] [address] Vinnie Frias MD 22 [facility], [address] [place] [address] documented as of this encounter Results * BI MAMMOGRAM SCREENING WITH TOMOSYNTHESIS WITH CAD (BILATERAL) (10/25/2021 3:22 PM EST) Anatomical Region Laterality Modality Breast Left, Breast Right, Breast Bilateral Bila teral Mammography 10/25/2021 3:41 PM EST Impressions 10/25/2021 3:44 PM EST No mammographic evidence of malignancy. Recommend annual surveillance. BI-RADS CATEGORY: 2 - Benign finding. DENSITY: The breast tissue is almost entirely fat. Narrative 10/25/2021 3:44 PM EST 61-year-old female with no current breast symptoms. Comparison made to previous on 10/17/2020 and as far back as 03/08/2015. Interpretation made in conjunction with computer-aided detection and tomosynthesis. The breasts are almost entirely fatty. Stable small right breast mass and upper outer right focal asymmetry. There are no suspicious masses, areas of architectural distortion, or suspicious clusters of microcalcifications. Procedure Note Jas Fortune MD - 10/25/2021 61-year-old female with no current breast symptoms. Comparison made toprevious on 10/17/2020 and as far back as 03/08/2015. Interpretation made inconjunction with computer-aided detection and tomosynthesis. The breasts are almost entirely fatty. Stable small right breast mass andupper outer right focal asymmetry. There are no suspicious masses, areas of architectural distortion, orsuspicious clusters of microcalcifications. IMPRESSION: No mammographic evidence of malignancy. Recommend annual surveillance. BI-RADS CATEGORY: 2 - Benign finding. DENSITY: The breast tissue is almost entirely fat. Earlene Dodd NP IMG MG EXAMS Final Result documented in this encounter Visit Diagnoses Diagnosis Breast screening- Primary Breast screening, unspecified Breast screening Breast screening, unspecified documented in this encounter Care Teams Crm Developer Relationship Specialty Start Date End Date Samantha Stephenson MD [address] [place] [address] PCP - General 08/01/17 04/19/24 Cyrus Yoder DO 29 [facility] [place] [address] [email or web address] PCP - General Family Medicine 04/20/24 Earlene Dodd, DIRECTOR PHARMACY SERVICES 30 [place] [address] [email or web address] Historical LMR Provider 06/22/17 Samantha Stephenson MD 15 [place] [address] [email or web address] Historical LMR Provider 06/22/17 Kurt Sifuentes DO [address] [place] [address] [facility], [place] [address] Historical LMR Provider 06/22/17 09/09/21 Christel Grayson MD [address] [address] [email or web address] Historical LMR Provider 06/22/17 Caitie Devlin MD [address] [address] Historical LMR Provider 06/22/17 2 Katie Rangel MD 61 [place] [id number] Historical LMR Provider 06/22/17 2 Navi Robles MD [address] [place] [address] Historical LMR Provider 06/22/17 2 Samantha Stephenson MD [address] [place] [address] [email or web address] Insurance Assigned Provider 12/08/22 12/07/23 Samantha Stephenson MD [address] [place] [address] [email or web address] Insurance Assigned Provider 03/07/24 06/07/24 Samantha Stephenson MD [address] [place] [address] [email or web address] Insurance Assigned Provider 07/11/24 08/12/24 documented as of this encounter Additional Source Comments The information contained in this document represents components of the legal health record. It is not the complete legal health record.[facility]
--- OUTSIDE RECORDS SUMMARY | 2025-05-17 19:45 | XMS_ITS | Encounter Summary ---
Author Organization [facility] Address [address] [place] [address] Phone Care Team Providers Care Circus Supervisor Name Role Phone Earlene Dodd Barbara GUEVARA Unavailable [phone] Samantha Stephenson MD Unavailable [phone] Samantha Stephenson MD Primary Care Provider [phone] Samantha Stephenson MD Unavailable [phone] Samantha Stephenson MD Unavailable [phone] Cyrus Yoder DO Primary Care Provider [phone] Samantha Stephenson MD Unavailable [phone] Encounter Details Date Type Department Care Team (Latest Contact Info) Description 03/08/2022 Transcribe Orders Virtual Department 30 [place] [address] Kristie Ng PA [address] [place] [address] [email or web address] Epigastric pain (Primary Dx) Social History Tobacco Use Types [...] st Contact Info) Description 04/22/2025 Procedure Pass [address] [address] 07/01/2025 2:15 PM EDT Office Visit [address] [address] Cyrus Yoder DO [address] [place] [address] 07/19/2025 1:00 PM EST Office Visit [facility] [address] [place] [address] Drew Garcia DO 22 [place] [address] 02/25/2026 1:30 PM EDT Appointment [address] [address] Vinnie Frias MD 22 [facility], [address] [place] [address] documented as of this encounter Results * US ABDOMEN COMPLETE (ADULT) (04/11/2022 9:09 AM EDT) Anatomical Region Laterality Modality Abdomen Ultrasound 04/11/2022 9:23 AM EDT Impressions 04/11/2022 9:29 AM EDT Hepatic steatosis. Narrative 04/11/2022 9:29 AM EDT US ABDOMEN COMPLETE (ADULT) TECHNIQUE: Abdominal Ultrasound Complete. COMPARISON: None FINDINGS: Liver: Echogenic. No focal lesions. Main Portal Vein: Patent with normal direction of flow. Gallbladder: Normal. No gallstones or gallbladder wall thickening. Biliary: Normal. No intrahepatic or extrahepatic biliary ductal dilatation. The common bile duct measures 5 mm. Pancreas: Visualized portions are unremarkable Spleen: Normal. No splenomegaly. Kidneys: No stones or hydronephrosis. There appears to be a 3.7 x 3 x 2 cm exophytic simple cyst arising from the lower pole of the right kidney. Aorta: Normal, where visualized sonographically. IVC: Normal intrahepatic segment. Procedure Note Chikis Palm MD - 04/11/2022 US ABDOMEN COMPLETE (ADULT) TECHNIQUE: Abdominal Ultrasound Complete. COMPARISON: None FINDINGS: Liver: Echogenic. No focal lesions. Main Portal Vein: Patent with normal direction of flow. Gallbladder: Normal. No gallstones or gallbladder wall thickening. Biliary: Normal. No intrahepatic or extrahepatic biliary ductaldilatation. The common bile duct measures 5 mm. Pancreas: Visualized portions are unremarkable Spleen: Normal. No splenomegaly. Kidneys: No stones or hydronephrosis. There appears to be a 3.7 x 3 x 2cm exophytic simple cyst arising from the lower pole of the rightkidney. Aorta: Normal, where visualized sonographically. IVC: Normal intrahepatic segment. IMPRESSION: Hepatic steatosis. us Kristie JASON IMG US ABDOMEN Final Result documented in this encounter Visit Diagnoses Diagnosis Epigastric pain- Primary Abdominal pain, epigastric Epigastric pain Abdominal pain, epigastric documented in this encounter Care Teams Circus Supervisor Relationship Specialty Start Date End Date Samantha Stephenson MD [address] [place] [address] [email or web address] PCP - General 08/01/17 04/19/24 Cyrus Yoder DO [address] [place] [address] [place] [address] PCP - General Family Medicine 04/20/24 Earlene Dodd NP 30 [place] [address] [email or web address] Historical LMR Provider 06/22/17 Samantha Stephenson MD 15 [place] [address] [email or web address] Historical LMR Provider 06/22/17 Samantha Stephenson MD 15 [place] [address] [email or web address] Insurance Assigned Provider 12/08/22 12/07/23 Samantha Stephenson MD 15 [place] [address] [email or web address] Insurance Assigned Provider 03/07/24 06/07/24 Samantha Stephenson MD 15 [place] [address] [email or web address] Insurance Assigned Provider 07/11/24 08/12/24 documented as of this encounter Additional Source Comments The information contained in this document represents components of the legal health record. It is not the complete legal health record.[facility]
--- OUTSIDE RECORDS SUMMARY | 2025-05-17 19:45 | XMS_ITS | Encounter Summary ---
Author Organization [facility] Address [address] [place] [address] Phone Care Team Providers Care Lining Machine Operator Name Role Phone [place], Earlene Jimenez NP Unavailable [phone] Samantha Stephenson MD Unavailable [phone] Samantha Stephenson MD Primary Care Provider [phone] Samantha Stephenson MD Unavailable [phone] Samantha Stephenson MD Unavailable [phone] Cyrus Yoder DO Primary Care Provider [phone] Samantha Stephenson MD Unavailable [phone] Encounter Details Date Type Department Care Team (Late st Contact Info) Description 07/27/2022 Procedure Pass [address] [address] Social History Tobacco Use Types Packs/Day Years [...] st Contact Info) Description 04/22/2025 Procedure Pass [address] [address] 07/01/2025 2:15 PM EDT Office Visit [address] [address] Cyrus Yoder DO 29 [place] [address] 07/19/2025 1:00 PM EST Office Visit [facility] [address] [place] [address] Drew Garcia DO 22 [place] [address] 02/25/2026 1:30 PM EDT Appointment [address] [address] Vinnie Frias MD [address] [place] [address], [address] [place] [address] documented as of this encounter Visit Diagnoses Not on filedocumented in this encounter Care Teams Lining Machine Operator Relationship Specialty Start Date End Date Samantha Stephenson MD [address] [place] [address] PCP - General 08/01/17 04/19/24 Cyrus Yoder DO [address] [place] [address] PCP - General Family Medicine 04/20/24 Earlene Dodd, ELECTRICAL TEST TECHNICIAN 30 [place] [address] [email or web address] Historical LMR Provider 06/22/17 Samantha Stephenson MD 15 [place] [address] [email or web address] Historical LMR Provider 06/22/17 Samantha Stephenson MD [address] [place] [address] [email or web address] Insurance Assigned Provider 12/08/22 12/07/23 Samantha Stephenson MD 15 [place] [address] [email or web address] Insurance Assigned Provider 03/07/24 06/07/24 Samantha Stephenson MD [address] [place] [address] [email or web address] Insurance Assigned Provider 07/11/24 08/12/24 documented as of this encounter Additional Source Comments The information contained in this document represents components of the legal health record. It is not the complete legal health record.[facility]
== END 2025-05-17 14:21 | disposition home or self-care (01) ==
LOC: HO.US 14:20
PROVIDERS: PCP Family Medicine; Visit Provider Internal Medicine Endocrinology, Diabetes & Metabolism
DX: E04.2 Nontoxic multinodular goiter (principal)
CPT/HCPCS: 76536

== ENCOUNTER → 2025-05-17 14:34 | Outpatient (BNV) | payer MEDICARE, SELFPAY | PROVIDERS: PCP Family Medicine; Visit Provider Radiology Diagnostic Radiology | DX: E04.2 Nontoxic multinodular goiter (principal) | CPT/HCPCS: 76536 ==